=== PATIENT | male | born 1950 | race Caucasian/White ===

== ENCOUNTER 2019-05-23 19:19 | Emergency (ER) | payer MEDICARE, MEDICAID, SELFPAY ==
[2019-05-23 19:26] VITALS: BP 148/93; PULSE 140; RESP 20; TEMP 36.6; O2SAT 98
--- NOTE | 2019-05-23 19:33 | DI.RAD.S_ITS ---
PROCEDURE: XR CHEST 1V INDICATIONS: chest pain TECHNIQUE: One view of the chest was acquired. COMPARISON: [facility], CHEST 2 VIEW, 03/29/2012, 12:24. [facility], CHEST 1 VIEW, 10/14/2009, 13:12. FINDINGS: Surgical changes and devices: None. Lungs and pleura: Lungs are clear. No pleural effusions or pneumothorax. Mediastinum: Mediastinal contours appear normal. Heart size is normal. Bones and chest wall: No suspicious bony lesions. Overlying soft tissues appear unremarkable. IMPRESSION: Normal for age, source of current chest pain symptoms is not seen. Dictated by: Cosme Ponce M.D. on 05/23/2019 at 20:19 Approved by: Cosme Ponce M.D. on 05/23/2019 at 20:19
[2019-05-23 19:51] LABS: Add Manual Diff / Slide Review NO; Basophils Absolute Auto 0 /uL (0-100); Basophils Percent Auto 0.3 % (0-2); Eosinophils Absolute Auto 600 /uL (0-450); Eosinophils Percent Auto 7.7 % (2-4); Hematocrit 44.6 % (41-53); Hemoglobin 15.5 g/dL (13.5-17.5); Lymphocytes Absolute Auto 1900 /uL (1100-4500); Mean Corpuscular HGB Conc 34.8 % (30-36); Mean Corpuscular Hemoglobin 34.5 PG (26-34); Mean Corpuscular Volume 99.2 fL (80-100); Monocytes Absolute Auto 700 /uL (0-900); Monocytes Percent Auto 8.4 % (3-14); Neutrophils Absolute Auto 4600 /uL (1500-7000); Neutrophils Percent Auto 58.6 % (50-75); Platelet Count 99 X10^3/uL (150-400); Red Cell Distribution Width 13.2 % (11.6-14.8); White Blood Cell Count 7.8 X10^3/uL (4.5-11.0)
[2019-05-23 20:00] LABS: INR 1.1 (0.9-1.3); Prothrombin Time 13.2 SECONDS (10.1-12.7)
[2019-05-23 20:03] LABS: PTT Partial Thromboplastin Tim 33 SECONDS (26.4-36.2)
--- NOTE | 2019-05-23 20:04 | ED_ITS ---
HPI - Chest Pain General Chief Complaint: Chest Pain Stated Complaint: chest pain Time Seen by Provider: 05/23/19 19:47 Source: patient Mode of arrival: Ambulatory Limitations: no limitations History of Present Illness HPI narrative: Patient is a 69-year-old male here for evaluation of chest pain and palpitations. He states that he does have a history of atrial fibrillation. He is not currently on any medications for this. He states that he normally is able to control the heart rate with meditation. Is also reported that he is smoke some marijuana today which is not new for him. He also states that today he was served with some legal paperwork for other social issues that he has been he arrives the emergency department because he was scared about his heart rate and the chest pain that he is having. He states he is unsure if he is in atrial fibrillation all the time or whether not it comes and goes. He states that normally his heart rate is in the 80s. Related Data Previous Rx's Medication Instructions Recorded metoprolol succinate 25 mg PO DAILY #30 tab 05/23/19 Allergies Allergy/AdvReac Type Severity Reaction Status Date / Time No Known Drug Allergies Allergy Verified 05/23/19 21:12 Review of Systems Constitutional Constitutional: Denies fatigue, Denies fever(s) and Denies headache(s) ENT Ears, Nose, Mouth, and Throat: Denies headache(s) and Denies disequilibrium Cardiovascular Cardiovascular: Reports chest pain, Denies syncope, Reports rapid heart rate, Reports palpitations and Denies dyspnea Respiratory Respiratory: Denies cough and Denies dyspnea Gastrointestinal Gastrointestinal: Denies abdominal pain, Denies nausea and Denies vomiting Genitourinary Genitourinary: Denies dysuria Musculoskeletal Musculoskeletal: Denies myalgias and Denies arthralgias Integumentary/Breasts Skin/Breast: Denies lesions and Denies rash Neurologic Neurologic: Denies behavioral changes, Denies syncope, Denies headache(s) and Denies disequilibrium Psychiatric Psychiatric: Denies behavioral changes Endocrine Endocrine: Denies fatigue and Reports palpitations Hematologic/Lymphatic Hematologic/Lymphatic: Denies easy bleeding and Denies easy bruising Patient History Medical History (Updated 05/23/19 @ 23:27 by Damon Almanza DO) Atrial fibrillation (Acute) tobacco type: vaping Substance Use Type: marijuana Exam Initial Vital Signs Initial Vital Signs: Vital Signs Temperature 97.9 F 05/23/19 19:26 Pulse Rate 140 H 05/23/19 19:26 Respiratory Rate 20 05/23/19 19:26 Blood Pressure 148/93 H 05/23/19 19:26 Pulse Oximetry 98 05/23/19 19:26 Const General: cooperative, comfortable, well developed and well groomed Limitations: mental status not altered HENMT Head: normal to inspection and normocephalic Resp Effort & Inspection: normal respiratory effort Auscultation: clear to auscultation bilaterally Cardio Rate: tachycardic Rhythm: abnormal rhythm irregularly irregular Pulses: radial pulses present GI Inspection: non-distended Palpation: soft, No firm and No tender Skin Lesions: no lesions Rashes: no rashes Neuro General: alert, awake and oriented x3 Cognition: normal cognition Speech: speech normal Extrem General: normal to inspection and capillary refill normal Psych Appearance: grossly normal and well kempt Scores GCS [place] coma scale eye opening: Spontaneous [place] coma scale verbal response: Orientated [place] coma scale motor response: Obey commands [place] coma scale total score: 15 Course Orders Ordered: ED Orders 05/23/19 19:33 XR chest 1V Stat EKG-12 Lead Stat 05/23/19 19:40 Complete Blood Count AUTO DIFF Stat Comprehensive Metabolic Panel Stat Lipase Stat Partial Thromboplastin Time Stat Prothrombin Time INR Stat Troponin & CK Cardiac Panel Stat 05/23/19 21:35 Troponin I Stat Discontinued Medications Metoprolol Succinate (Toprol Xl) 25 mg PO NOW ONE Stop: 05/23/19 21:15 Last Admin: 05/23/19 21:38 Dose: 25 mg Documented by: JERMAINE Metoprolol Tartrate (Lopressor) 5 mg IV NOW ONE Stop: 05/23/19 20:05 Last Admin: 05/23/19 20:13 Dose: 5 mg Documented by: JERMAINE Vital Signs Vital signs: Vital Signs - 8 hr 05/23/19 19:26 05/23/19 20:25 05/23/19 21:03 Temperature 97.9 F Pulse Rate 140 H 120 H 112 H Respiratory Rate 20 25 H 16 Blood Pressure 148/93 H Blood Pressure [Left Arm] 129/104 H 111/98 H Pulse Oximetry 98 97 100 05/23/19 22:04 Temperature Pulse Rate 96 H Respiratory Rate 19 Blood Pressure Blood Pressure [Left Arm] 108/84 Pulse Oximetry 100 MDM - Chest Pain Lab Data Attestation: I reviewed the patient's lab results. Result diagrams: 05/23/19 19:40 05/23/19 19:40 Labs: Lab Results 05/23/19 05/23/19 05/23/19 Range/Units 19:40 19:40 19:40 WBC 7.8 (4.5-11.0) X10^3/uL RBC 4.50 (4.5-5.9) X10^6/uL Hgb 15.5 (13.5-17.5) g/dL Hct 44.6 (41-53) % MCV 99.2 (80-100) fL MCH 34.5 H (26-34) PG MCHC 34.8 (30-36) % RDW 13.2 (11.6-14.8) % Plt Count 99 L (150-400) X10^3/uL Neut % (Auto) 58.6 (50-75) % Lymph % (Auto) 25.0 (25-40) % [place] % (Auto) 8.4 (3-14) % Eos % (Auto) 7.7 H (2-4) % Baso % (Auto) 0.3 (0-2) % Neut # (Auto) 4600 (0610-0081) /uL Lymph # (Auto) 1900 (1947-8063) /uL [place] # (Auto) 700 (0-900) /uL Eos # (Auto) 600 H (0-450) /uL Baso # (Auto) 0 (0-100) /uL PT 13.2 H (10.1-12.7) SECONDS INR 1.1 (0.9-1.3) APTT 33 (26.4-36.2) SECONDS Sodium 140 (137-145) mmol/L Potassium 4.2 (3.4-5.1) mmol/L Chloride 104 (98-107) mmol/L Carbon Dioxide 27 (22-32) mmol/L BUN 13 (9-20) mg/dL Creatinine 0.90 (0.66-1.25) mg/dL Estimated GFR > 60.0 (>60) mL/min BUN/Creatinine Ratio 14.4 (6-22) Glucose 138 H (80-110) mg/dL Calcium 9.4 (8.4-10.2) mg/dL Total Bilirubin 0.7 (0.2-1.3) mg/dL AST 91 H (17-59) IU/L ALT 75 H (<50) IU/L Alkaline Phosphatase 141 H (38-126) U/L Total Creatine Kinase 186 H (55-170) U/L CK-MB (CK-2) 3.54 H (<2.37) ng/mL CK-MB (CK-2) Rel Index 1.9 (1.5-5.0) % Troponin I < 0.012 (0.01-0.034) ng/mL Total Protein 7.7 (6.3-8.2) g/dL Albumin 4.5 (3.5-5.0) g/dL Globulin 3.2 (1.7-4.1) g/dL Albumin/Globulin Ratio 1.4 (1.0-2.8) Lipase 100 (23-300) U/L 05/23/19 Range/Units 21:35 WBC (4.5-11.0) X10^3/uL RBC (4.5-5.9) X10^6/uL Hgb (13.5-17.5) g/dL Hct (41-53) % MCV (80-100) fL MCH (26-34) PG MCHC (30-36) % RDW (11.6-14.8) % Plt Count (150-400) X10^3/uL Neut % (Auto) (50-75) % Lymph % (Auto) (25-40) % [place] % (Auto) (3-14) % Eos % (Auto) (2-4) % Baso % (Auto) (0-2) % Neut # (Auto) (5372-9934) /uL Lymph # (Auto) (4587-8047) /uL [place] # (Auto) (0-900) /uL Eos # (Auto) (0-450) /uL Baso # (Auto) (0-100) /uL PT (10.1-12.7) SECONDS INR (0.9-1.3) APTT (26.4-36.2) SECONDS Sodium (137-145) mmol/L Potassium (3.4-5.1) mmol/L Chloride (98-107) mmol/L Carbon Dioxide (22-32) mmol/L BUN (9-20) mg/dL Creatinine (0.66-1.25) mg/dL Estimated GFR (>60) mL/min BUN/Creatinine Ratio (6-22) Glucose (80-110) mg/dL Calcium (8.4-10.2) mg/dL Total Bilirubin (0.2-1.3) mg/dL AST (17-59) IU/L ALT (<50) IU/L Alkaline Phosphatase (38-126) U/L Total Creatine Kinase (55-170) U/L CK-MB (CK-2) (<2.37) ng/mL CK-MB (CK-2) Rel Index (1.5-5.0) % Troponin I < 0.012 (0.01-0.034) ng/mL Total Protein (6.3-8.2) g/dL Albumin (3.5-5.0) g/dL Globulin (1.7-4.1) g/dL Albumin/Globulin Ratio (1.0-2.8) Lipase (23-300) U/L Imaging Data Chest x-ray: Radiologist's Impression: [address] [address] XRay Report Signed Patient: Brad Bal R#: [id number] : 2Acct:[id number] Age/Sex: 69 / MDate of Service: 05/23/19 Loc: ED Accession Number: [id number] Procedure: XR chest 1V Ordering Provider: Damon Almanza D.O. PROCEDURE: XR CHEST 1V INDICATIONS: chest pain TECHNIQUE: One view of the chest was acquired. COMPARISON: [facility], CHEST 2 VIEW, 03/29/2012, 12:24. [facility], CHEST 1 VIEW, 10/14/2009, 13:12. FINDINGS: Surgical changes and devices: None. Lungs and pleura: Lungs are clear. No pleural effusions or pneumothorax. Mediastinum: Mediastinal contours appear normal. Heart size is normal. Bones and chest wall: No suspicious bony lesions. Overlying soft tissues appear unremarkable. IMPRESSION: Normal for age, source of current chest pain symptoms is not seen. Dictated by: Cosme Ponce M.D. on 05/23/2019 at 20:19 Approved by: Cosme Ponce M.D. on 05/23/2019 at 20:19 ECG Data Attestation: I personally reviewed and interpreted this ECG as follows: Prior ECG tracings: not available for review Interpretation: Atrial fibrillation Ventricular rate of 148 Left axis deviation Normal QRS Normal QTC No ST T wave changes MDM Narrative Medical decision making narrative: Patient was in atrial fibrillation with RVR. Chest x-ray was unremarkable. Was having some chest discomfort that time. Upon arrival patient stated he did not want any medications. Apparently he has a history of hepatitis any was concerned that these medications may interact with that. I did inform him that he was in atrial fibrillation and his heart rate was fast and he was having chest discomfort and the concern that I have was that his chest pain was actually ischemia/angina. Patient stated that he initially only wanted to be ?observed ?for 2 hours before starting any medications in order to give him a chance to ?calm down ?I informed him that he was here in the emergency department and that given his presenting findings on his EKG in the fact he was having chest pain that waiting for 2 hours could potentially lead to worsening issues to include myocardial damage which could potentially be reversible. He then stated that he would like to be observed for ?1 hour ?I again informed him that if he was here in the emergency department and the symptoms he that he was having that we needed to intervene given the potential issues that he could be having. After this discussion the patient did agree to medications. He's given metoprolol which decreased his heart rate below 120. He was then given extended release metoprolol and his heart rate was consistently below 110 infrequently in the 90s. He was still in atrial fibrillation. He states that his chest discomfort had improved. His troponins were negative x2. I did send him home with a prescription for metoprolol unsure if he is going to start taking this medication. He does have a primary doctor. I did inform the patient he should talk to his primary doctor about the indications for anticoagulation. Patient would like to go home. He states that he feels better. He was given return precautions and follow-up instructions. He expressed understanding and agreement with plan. Discharge Plan Departure Patient Disposition: Home Clinical Impression: Atrial fibrillation Qualifiers: Atrial fibrillation type: unspecified Qualified Code(s): I48.91 - Unspecified atrial fibrillation Discharge Date/Time: 05/23/19 22:33 Instructions: DI for Atrial Fibrillation Activity Restrictions/Additional Instructions: It is important that you talk with your primary provider about further workup to include the potential stress test verses long-term medications and anticoagulation given your history of chest pain. There is obviously risks and benefits all of these medications. Return to the emergency department for any new or worsening symptoms. Your medications were transmitted to the [facility] pharmacy in [place]. Prescriptions: New metoprolol succinate 25 mg tablet extended release 24 hr 25 mg PO DAILY Qty: 30 RF: 0
[2019-05-23] MEDS: METOPROLOL TARTRATE 5 MG/5 ML INJ IV (20:13)
[2019-05-23 20:25] VITALS: BP 129/104; PULSE 120; RESP 25; O2SAT 97
[2019-05-23 20:27] LABS: Alanine Aminotransferase 75 IU/L (<50); Albumin 4.5 g/dL (3.5-5.0); Albumin Globulin Ratio 1.4 (1.0-2.8); Alkaline Phosphatase 141 U/L (38-126); Aspartate Aminotransferase 91 IU/L (17-59); BUN Creatinine Ratio 14.4 (6-22); Bilirubin Total 0.7 mg/dL (0.2-1.3); Blood Urea Nitrogen 13 mg/dL (9-20); Calcium 9.4 mg/dL (8.4-10.2); Carbon Dioxide 27 mmol/L (22-32); Chloride 104 mmol/L (98-107); Creatine Kinase 186 U/L (55-170); Estimated Glomerular Filt Rate > 60.0 mL/min (>60); Globulin 3.2 g/dL (1.7-4.1); Glucose 138 mg/dL (80-110); HEMOLYSIS < 15 (0-50); Lipase 100 U/L (23-300); Potassium 4.2 mmol/L (3.4-5.1); Sodium 140 mmol/L (137-145); Total Protein 7.7 g/dL (6.3-8.2); Troponin I < 0.012 ng/mL (0.01-0.034)
[2019-05-23 20:29] LABS: CKMB % Relative Index 1.9 % (1.5-5.0); Creatine Kinase MB 3.54 ng/mL (<2.37)
[2019-05-23 21:03] VITALS: BP 111/98; PULSE 112; RESP 16; O2SAT 100
[2019-05-23] MEDS: METOPROLOL ER 25 MG TABLET PO (21:38)
[2019-05-23 22:04] VITALS: BP 108/84; PULSE 96; RESP 19; O2SAT 100
[2019-05-23 22:04] LABS: Troponin I < 0.012 ng/mL (0.01-0.034)
== END 2019-05-23 22:33 | disposition home or self-care (01) ==
PROVIDERS: Emergency Provider Emergency Medicine
DX: I48.91 Unspecified atrial fibrillation (principal)
CPT/HCPCS: 36415; 71045; 80053; 82550; 82553; 83690; 84484; 85025; 85610; 85730; 93005; 96374; 99284; 99285

== ENCOUNTER 2019-06-01 20:30 | Observation (INO) | payer MEDICARE, MEDICAID, SELFPAY ==
[2019-06-01] VITALS (7 sets, daily range): BP systolic 111–140; BP diastolic 68–101; PULSE 64–121; RESP 14–18; TEMP 36.4; O2SAT 98–99
--- NOTE | 2019-06-01 20:40 | ED_ITS ---
HPI - Medical Clearance General Chief complaint: Medical Clearance Stated complaint: Fit for half-way Time Seen by Provider: 06/01/19 20:30 Source: patient Mode of arrival: Ambulatory Limitations: no limitations History of Present Illness HPI Narrative: 69M nonsmoker with history of AFib presents with PD for medical clearance for incarceration. There was no trauma or assault. Additionally patient denies any symptoms but upon further questioning he states that he feels quite anxious and is having palpitations. He was seen here few days ago for atrial fib with a rapid rate and there was some discussion about whether not he should be cardioverted but patient in the end refused and insisted upon going home. He is not anticoagulated and has not been taking his rate-controlling medications because he states he can normally do it with meditation alone. He does admit to palpitations but denies chest pain or any significant shortness of breath. It is unclear when his palpitations started MD complaint: medical clearance requested Alleged Intoxication: No Compliant with Home Medications: No Associated Symptoms: palpitations Treatments Prior to Arrival: none Related Information Previous Rx's Medication Instructions Recorded metoprolol succinate 25 mg PO DAILY #30 tab 05/23/19 Allergies Allergy/AdvReac Type Severity Reaction Status Date / Time No Known Drug Allergies Allergy Verified 05/23/19 21:12 Review of Systems Constitutional Constitutional: Denies chills, Denies fatigue, Denies fever(s), Denies frequent falls, Denies lethargy and Denies weakness Eyes Eyes: Denies change in vision, Denies eye discharge, Denies irritation and Denies loss of vision ENT Ears, Nose, Mouth, and Throat: Denies change in voice, Denies dizziness, Denies neck pain, Denies sore throat and Denies throat swelling Cardiovascular Cardiovascular: Denies chest pain, Denies irregular heart rhythm, Denies lightheadedness, Reports palpitations, Denies dyspnea, Denies dyspnea on exertion and Denies orthopnea Respiratory Respiratory: Denies cough, Denies dyspnea, Denies dyspnea on exertion and Denies wheezing Gastrointestinal Gastrointestinal: Denies abdominal pain, Denies change in bowel habits, Denies diarrhea, Denies nausea and Denies vomiting Genitourinary Genitourinary: Denies hematuria, Denies flank pain, Denies urinary incontinence and Denies urinary urgency Musculoskeletal Musculoskeletal: Denies back pain, Denies muscle weakness, Denies neck pain, Denies numbness and Denies tingling Integumentary/Breasts Skin/Breast: Denies pruritus, Denies erythema, Denies rash and Denies wounds Neurologic Neurologic: Denies behavioral changes, Denies confusion, Denies dizziness, Denies frequent falls, Denies loss of vision, Denies numbness, Denies tingling and Denies weakness Psychiatric Psychiatric: Denies anxiety, Denies behavioral changes, Denies confusion, Denies depression, Denies homicidal ideation and Denies suicidal ideation Endocrine Endocrine: Denies fatigue, Denies flushing and Reports palpitations Hematologic/Lymphatic Hematologic/Lymphatic: Denies easy bruising Allergic/Immunologic Allergic/Immunologic: Denies urticaria, Denies throat swelling and Denies wheezing Patient History Medical History Atrial fibrillation (Acute) Hepatitis C (Acute) Surgical History History of hand surgery (Acute) Family History Father Atrial fibrillation Chronic kidney disease Mother Parkinson's disease Sister Atrial fibrillation Sister Atrial fibrillation Cancer Social History household members: none Smoking Status: Never smoker alcohol intake: former tobacco type: vaping Substance Use Type: marijuana Exam Narrative Exam Narrative: GENERAL: [69] year old patient appears stated age. Well- nourished, well-developed patient, in mild distress. HEAD: Atraumatic. Normocephalic. EYES: Pupils equal round and reactive. Extraocular motions intact. No scleral icterus. No injection or drainage. ENT: Nose without bleeding, purulent drainage. Throat without erythema, tonsil lar hypertrophy or exudate. Airway patent. NECK: Trachea midline. Non tender CARDIOVASCULAR: tachycardic and irregular rhythm without murmurs, gallops, or rubs. RESPIRATORY: Clear to auscultation. Breath sounds equal bilaterally. No wheezes, rales, or rhonchi. GASTROINTESTINAL: Abdomen soft, non-tender, nondistended. EXTREMITIES: No edema or joint tenderness. BACK: Nontender without deformity or crepitance. No flank tenderness. NEURO: AOx3. SKIN: No rash or erythema of visible areas Initial Vital Signs Initial Vital Signs: Vital Signs Temperature 97.6 F 06/01/19 20:35 Pulse Rate 64 06/01/19 20:35 Respiratory Rate 18 06/01/19 20:35 Blood Pressure 140/87 06/01/19 20:35 Pulse Oximetry 98 06/01/19 20:35 MDM - Medical Clearance Lab Data Result diagrams: 06/01/19 21:30 06/01/19 21:30 Labs: Lab Results 06/01/19 06/01/19 06/01/19 Range/Units 21:30 21:30 22:45 WBC 6.3 (4.5-11.0) X10^3/uL RBC 4.32 L (4.5-5.9) X10^6/uL Hgb 14.8 (13.5-17.5) g/dL Hct 42.9 (41-53) % MCV 99.2 (80-100) fL MCH 34.4 H (26-34) PG MCHC 34.6 (30-36) % RDW 13.2 (11.6-14.8) % Plt Count 91 L (150-400) X10^3/uL Neut % (Auto) 56.8 (50-75) % Lymph % (Auto) 25.9 (25-40) % [place] % (Auto) 7.4 (3-14) % Eos % (Auto) 9.6 H (2-4) % Baso % (Auto) 0.3 (0-2) % Neut # (Auto) 3600 (7799-2855) /uL Lymph # (Auto) 1600 (3877-7336) /uL [place] # (Auto) 500 (0-900) /uL Eos # (Auto) 600 H (0-450) /uL Baso # (Auto) 0 (0-100) /uL Sodium 138 (137-145) mmol/L Potassium 4.0 (3.4-5.1) mmol/L Chloride 104 (98-107) mmol/L Carbon Dioxide 25 (22-32) mmol/L BUN 22 H (9-20) mg/dL Creatinine 0.80 (0.66-1.25) mg/dL Estimated GFR > 60.0 (>60) mL/min BUN/Creatinine Ratio 27.5 H (6-22) Glucose 123 H (80-110) mg/dL Calcium 8.9 (8.4-10.2) mg/dL Magnesium 2.0 (1.6-2.3) mg/dL Troponin I < 0.012 (0.01-0.034) ng/mL B-Natriuretic Peptide < 100 (<100) ECG Data Attestation: I personally reviewed and interpreted this ECG as follows: Interpretation: rapid afib in 140s, no ischemia. MDM Narrative Medical decision making narrative: 69 with symptomatic rapid afib, not candidate for cardioversion given lack of anticoagulation, duration unclear, but likely a few days and no chest pain or ischemic change on EKG. Initially his home meds given but he remained tachy in the 120s-130s for well over an hour and esmolol drip ordered. Patient clearly cannot be medically cleared and will need admission for stabilization of his condition. Discharge Plan Departure Patient Disposition: Admitted As Inpatient Clinical Impression: Atrial fibrillation Qualifiers: Atrial fibrillation type: paroxysmal Qualified Code(s): I48.0 - Paroxysmal atrial fibrillation Discharge Date/Time: 06/01/19 23:46 Admit Date/Time: 06/01/19 23:41 Admit Provider: Raji Aguiar
--- NOTE | 2019-06-01 21:02 | DI.RAD.S_ITS ---
PROCEDURE: XR CHEST 1V INDICATIONS: SOB TECHNIQUE: One view of the chest was acquired. COMPARISON: [facility], CR, XR CHEST 1V, 05/23/2019, 19:52. FINDINGS: Surgical changes and devices: None. Lungs and pleura: Lungs are clear. No pleural effusions or pneumothorax. Mediastinum: Mediastinal contours appear normal. Heart size is normal. Bones and chest wall: No suspicious bony lesions. Overlying soft tissues appear unremarkable. IMPRESSION: 1. No acute cardiopulmonary disease. Dictated by: Faisal Aparicio M.D. on 06/01/2019 at 21:23 Approved by: Faisal Aparicio M.D. on 06/01/2019 at 21:24
[2019-06-01 21:43] LABS: Add Manual Diff / Slide Review NO; Basophils Absolute Auto 0 /uL (0-100); Basophils Percent Auto 0.3 % (0-2); Eosinophils Absolute Auto 600 /uL (0-450); Eosinophils Percent Auto 9.6 % (2-4); Hematocrit 42.9 % (41-53); Hemoglobin 14.8 g/dL (13.5-17.5); Lymphocytes Absolute Auto 1600 /uL (1100-4500); Lymphocytes Percent Auto 25.9 % (25-40); Mean Corpuscular HGB Conc 34.6 % (30-36); Mean Corpuscular Hemoglobin 34.4 PG (26-34); Mean Corpuscular Volume 99.2 fL (80-100); Monocytes Absolute Auto 500 /uL (0-900); Monocytes Percent Auto 7.4 % (3-14); Neutrophils Absolute Auto 3600 /uL (1500-7000); Neutrophils Percent Auto 56.8 % (50-75); Platelet Count 91 X10^3/uL (150-400); Red Blood Cell Count 4.32 X10^6/uL (4.5-5.9); Red Cell Distribution Width 13.2 % (11.6-14.8); White Blood Cell Count 6.3 X10^3/uL (4.5-11.0)
[2019-06-01 21:53] LABS: BUN Creatinine Ratio 27.5 (6-22); Blood Urea Nitrogen 22 mg/dL (9-20); Calcium 8.9 mg/dL (8.4-10.2); Carbon Dioxide 25 mmol/L (22-32); Chloride 104 mmol/L (98-107); Estimated Glomerular Filt Rate > 60.0 mL/min (>60); Glucose 123 mg/dL (80-110); HEMOLYSIS 40 (0-50); Sodium 138 mmol/L (137-145)
[2019-06-01 21:57] LABS: B Type Natriuretic Peptide < 100 (<100)
[2019-06-01 23:12] LABS: Troponin I < 0.012 ng/mL (0.01-0.034)
--- NOTE | 2019-06-01 23:40 | DI.ECHO.S_ITS ---
[facility] +---------+ : : [address] : : : : [id number] : : : : Phone: [phone] Echocardiogram Report + + :Name: CHERISE OMALLEY Study Date: 06/02/2019 Height: 72 in : :[facility] Weight: 167 lb : : Gender: Male BSA: 2.0 m2 : :: 1950 Age: 69 yrs BP: 108/62 mmHg: :Reason For Study: Atrial fibrillation/ RVR : :Ordering Physician: Lola : :Hospitalist Performed By: Josette Page : :Referring: ROBIN ZABALA : + + Interpretation Summary Left ventricular systolic function is mild to moderately reduced. The ejection fraction is estimated to be 40-45%. There are no focal wall motion abnormalities. The right ventricular systolic pressure is estimated to be at least 19 mmHg based on an estimated right atrial pressure of 3 mm Hg. The left atrium is moderately dilated. Compared to prior echocardiogram, the LV systolic function is slightly less vigorous although visually is unchanged. Procedure: A two-dimensional transthoracic echocardiogram with color flow and Doppler was performed. The study quality was technically adequate. Comparison is made with the echocardiogram of 01/06/2017. The heart rate ranged between 74-102 bpm during the study. Left Ventricle: The left ventricle is normal in size and wall thickness. The ejection fraction is estimated to be 40-45%. Left ventricular systolic function is mild to moderately reduced. There are no focal wall motion abnormalities. Right Ventricle: The right ventricle is normal in size and function. Atria: The left atrium is moderately dilated. The right atrium is moderately dilated. There is no Doppler evidence for an interatrial shunt. Mitral Valve: The mitral valve leaflets appear mildly thickened, but open well. There is a flat closure plane of the the mitral valve leaflets. There is trace mitral regurgitation. Aortic Valve: The aortic valve is trileaflet. The aortic valve opens well. No aortic regurgitation is present. Tricuspid Valve: The tricuspid valve is normal in structure and function. There is trace tricuspid regurgitation. The right ventricular systolic pressure is estimated to be at least 19 mmHg based on an estimated right atrial pressure of 3 mm Hg. Pulmonic Valve: The pulmonic valve is not well visualized. There is trace pulmonic regurgitation. Great Vessels: The aortic root is normal size. The ascending aorta could not be visualized. The pulmonary artery is not well visualized, but is probably normal size. The IVC is of normal diameter and collapses greater than 50% with a sniff. This suggests a low right atrial pressure of 3 mm Hg. Pericardium/ Pleura There is no pericardial effusion. There is no pleural effusion. MMode/2D Measurements & Calculations LVIDd: 5.5 cm LVOT diam: 2.4 cm LVIDs: 4.5 cm Ao root diam: 3.9 cm FS: 17.4 % EPSS: 0.54 cm IVSd: 0.79 cm LVPWd: 0.87 cm LV stephens. diameter/BSA (cm/m^2): 2.8 LV sys. diameter/BSA (cm/m^2): 2.3 LA A2 area: 38.5 cm2 RA long axis: 6.0 cm LA A4 area: 29.0 cm2 RA area: 22.6 cm2 LA length (vol): 6.5 cm RA vol: 72.3 ml LA vol: 145.8 ml RA : 36.6 ml/m2 LA vol index: 73.9 ml/m2 IVC diam: 1.5 cm RVD1 (basal): 4.2 cm LVAd ap4: 27.9 cm2 RVD2 (mid): 3.5 cm LVAs ap4: 21.8 cm2 TAPSE: 1.8 cm LVLs ap4: 7.3 cm LVAd ap2: 27.5 cm2 LVLd ap2: 8.1 cm LVAs ap2: 18.9 cm2 LVLs ap2: 7.0 cm Doppler Measurements & Calculations Ao V2 max: 93.9 cm/sec LVOT Max Bradley: 54.2 cm/sec Ao V2 mean: 63.0 cm/sec LV V1 max P.2 mmHg Ao max P.6 mmHg LV V1 VTI: 9.5 cm Ao mean P.8 mmHg HAYDEE(I,D): 2.4 cm2 Ao V2 VTI: 18.6 cm HAYDEE(V,D): 2.7 cm2 sev ratio: 0.51 HAYDEE indexed to BSA (cm^2/m^2): 1.2 MV E max bradley: 60.3 cm/sec TR max bradley: 184.7 cm/sec Med Peak E' Bradley: 10.1 cm/sec TR max P.7 mmHg E/E' med: 6.0 PA V2 max: 63.0 cm/sec Lat Peak E' Bradley: 16.6 cm/sec PA V2 mean: 47.6 cm/sec E/E' lat: 3.6 PA mean P.97 mmHg E/e' average: 4.8 PA Accel Time: 0.18 sec MV P1/2t: 57.1 msec MV P1/2t max bradley: 61.0 cm/sec SV(LVOT): 44.9 ml MVA(P1/2t): 3.9 cm2 Electronically signed by: Fred Riley M.D. on Reading Physician:06/02/2019 04:26 PM
--- NOTE | 2019-06-01 23:41 | PC.NURSE ---
2309 Verbal order from Kelvin hospitalist- held Esmolol.
--- NOTE | 2019-06-01 23:45 | P.HP_ITS ---
History of Present Illness History of Present Illness Date Patient Seen: 06/01/19 Time Patient Seen: 23:00 Chief complaint: Fit for residential Narrative: Mr. Brad Bal is a 69-year-old male patient with history of paroxysmally atrial fibrillation, hepatitis C failing antiviral treatment who presents to the ER with years officers for medical clearance for residential. On eval uation the patient is found to be tachycardic in the 130s and reports palpitations. Patient was seen for similar episode on 05/23/2019 when he presented for what he describes as episodes of atrial fibrillation that was diagnosed in 2001. At that time he had chest pressure palpitations. He was refu sing admission and was discharged with a prescription for metoprolol succinate 25 mg daily. He reports having taken the medication but stopped because he did not like the way it made him feel. He is typically managed is episodic atrial fibrillation with meditation. Use not anticoagulated and has been told not to take aspirin related to his hepatitis and low platelet counts. The patient has had previous cardiac workup but no longer follows with cardiology. The patient presently denies chest pain but has pressure associated with palpitations. He has no shortness of breath cough or wheezing. Denies recent illness this had no fevers or chills, headaches or dizziness, nasal congestion or sore throat. He denies abdominal pain and has had no heartburn, nausea or vomiting. He denies changes in bowel or bladder habits. The patient is independent in his ADLs and uses no assistive devices. Arrival to the ER the patient is afebrile with temperature 97.6?, heart rate of 121, blood pressure 122/70, respirations 15 saturating 98% on room air. Twelve lead EKG is obtained finding atrial fibrillation with rapid ventricular response at a rate of 134 beats per minute. He has right bundle branch block without ectopy, ischemia or evidence of infarct. A chest x-ray is obtained which finds no acute cardiopulmonary processes. On laboratory analysis his white count of 6.3, hemoglobin of 14.8, hematocrit of 42.9 and platelets of 91. On coagulation studies from 05/23/2019 he has a PT of 13.2, INR 1.1 and a PTT of 33. His electrolytes are within normal range with a BUN of 22 and creatinine is 0.8. His nonfasting glucose is 123 has a magnesium level of 2.0. Liver functions obtained on 05/23/2019 revealed a total bili of 0.7, AST of 91, ALT is 75 and alkaline phosphatase of 141, his albumin is 4.5. His troponin today is negative at less than 0.012 and a BMP that is less than 100. In the ER the patient is given metoprolol succinate 25 mg but persistent heart rate elevated over 120 1 hour after administration. Esmolol drip is ordered and patient is to be admitted to medicine service for atrial fibrillation with RVR. Patient History Medical History (Updated 06/02/19 @ 00:10 by TARYN Smith) Atrial fibrillation (Acute) Hepatitis C (Acute) Surgical History (Updated 06/02/19 @ 00:10 by TARYN Smith) History of hand surgery (Acute) Family & Social History Family History (Updated 06/02/19 @ 00:12 by TARYN Smith) Father Atrial fibrillation Chronic kidney disease Mother Parkinson's disease Sister Atrial fibrillation Sister Atrial fibrillation Cancer Safety & Behavioral: Feels Safe in Current Yes Environment Tobacco & Substance use: Substance Use Type marijuana Comment: Patient presently lives in a single level single family home. He has been for over 10 years. He reports his father at 90 minutes 1 with history of chronic kidney disease and atrial fibrillation. His mother at 88 from parkinsonism. He has 2 sisters both atrial fibrillation and 1 with breast cancer. He has no children. Occupation: Retired, disability Smoking: The patient denies using tobacco products. 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 Substance use: Patient smokes marijuana daily. Advanced directives: In direct discussion with the patient he states his wish to be FULL CODE. He designates his sister Aleyda Mora ([phone]) or his shalom Garcia ([phone]) to be surrogate decision makers. Meds Home Medications and Allergies Home Medications Medication Instructions Recorded Confirmed Type metoprolol succinate 25 mg PO DAILY #30 tab 05/23/19 Rx Allergies Allergy/AdvReac Type Severity Reaction Status Date / Time No Known Drug Allergies Allergy Verified 05/23/19 21:12 Review of Systems Review of Systems Narrative: All systems reviewed and found unremarkable under discussed in the HPI above. Exam Vital Signs (past 8 hours): - 06/01/19 20:35 06/01/19 21:00 06/01/19 21:30 Temperature 97.6 F Pulse Rate 64 121 H 115 H Respiratory Rate 18 15 16 Blood Pressure 140/87 Blood Pressure [Right Arm] 122/70 127/86 Pulse Oximetry 98 98 99 06/01/19 22:00 06/01/19 22:30 06/01/19 23:00 Temperature Pulse Rate 112 H 110 H 97 H Respiratory Rate 15 17 17 Blood Pressure Blood Pressure [Right Arm] 117/78 111/68 111/68 Pulse Oximetry 99 98 98 Oxygen Delivery Method Room Air Narrative Exam Narrative: GENERAL APPEARANCE: well developed, well nourished, in no acute distress. HEENT: Normocephalic, wears glasses, PERRLA, conjunctiva clear, sclera anicteric, EOMs intact without nystagmus, no rhinorrhea, mucous membranes are moist and pink without lesions or exudate. NECK/THYROID: neck supple, positive JVD, no carotid bruit, no thyromegaly, trachea midline. LYMPH NODES: no cervical or supraclavicular lymphadenopathy. SKIN: [place], warm and dry, no visible lesions, rashes, ulcerations or petechiae. HEART: Irregularly irregular rhythm, S1-S2, no murmur, no rubs or gallops, brisk capillary refill, no edema LUNGS: clear to auscultation bilaterally, no coarseness crackles or wheezing, no cough present CHEST: Symmetrical movement, no accessory muscle use, good tidal volume. ABDOMEN: Soft, no distention, no abdominal tenderness, no organomegaly, no flank tenderness, active bowel tones. BACK: Normal curvature, nontender to palpation, no CVA tenderness on percussion EXTREMITIES: moves all extremities, strength is 5/5 and symmetrical, no deformities or joint effusions. NEUROLOGIC: AAO x4, no focal neurologic deficits, sensation intact to light touch, hearing grossly normal to speech. PSYCH: Soft spoken, cooperative, linear thought process, appropriate with stable behavior Objective Labs Result Diagrams: 06/01/19 21:30 06/01/19 21:30 Labs: Laboratory Results - last 24 hr 06/01/19 06/01/19 06/01/19 21:30 21:30 22:45 WBC 6.3 RBC 4.32 L Hgb 14.8 Hct 42.9 MCV 99.2 MCH 34.4 H MCHC 34.6 RDW 13.2 Plt Count 91 L Neut % (Auto) 56.8 Lymph % (Auto) 25.9 [place] % (Auto) 7.4 Eos % (Auto) 9.6 H Baso % (Auto) 0.3 Neut # (Auto) 3600 Lymph # (Auto) 1600 [place] # (Auto) 500 Eos # (Auto) 600 H Baso # (Auto) 0 Sodium 138 Potassium 4.0 Chloride 104 Carbon Dioxide 25 BUN 22 H Creatinine 0.80 Estimated GFR > 60.0 BUN/Creatinine Ratio 27.5 H Glucose 123 H Calcium 8.9 Magnesium 2.0 Troponin I < 0.012 B-Natriuretic Peptide < 100 Assessment & Plan Assessment & Plan narrative: This 69-year-old male who presents to the ER in custody of share of for medical clearance and is found to be tachycardic in AFib with RVR. Patient with prior history of atrial fibrillation seen in the ER on 05/23/2019 discharge home metoprolol. Patient with previous cardiac workup. Echocardiogram from 01/06/2017 finds EF of 55-60% normal LV and RV structure and function. Severe left atrial dilation and moderate right atrial dilation with trace mitral and pulmonic regurgitation. 1. Paroxysmal atrial fibrillation with rapid ventricular response, present on admission, active. -the patient reports episodes of atrial fibrillation initially diagnosed in 2001 following electrical shock contacting 170 volt electrical line. -reports previous cardiac workup without ongoing cardiology care -12 lead EKG confirms atrial fibrillation with RVR particular rate 134 with RBBB without evidence of ischemia or infarct. -potassium level is 4.0 and magnesium is 2.0. Troponin is negative at < 0.012, BNP is <100. -patient received metoprolol succinate 25 mg in the emergency department with no decrease in heart rate after 1 hour. Esmolol drip ordered but not started with heart rate controlled to low 100s without chest pain or shortness of breath. Continued palpitations. -patient reports being intolerant of metoprolol prescribed on prior ER visit, will consider change to Cardizem CD 100 20 mg daily. Will discuss with the patient following echocardiogram in the morning. -patient refuses anticoagulation with known low platelet count. -will monitor electrolytes with BMP and magnesium in the morning. 2. Hepatitis-C, chronic, stable -patient states he has undergone antiviral treatment that failed. -no current complaints of abdominal pain, nausea vomiting, bleeding or bruising. -LFTs from 05/23/2019 reveals a total bilirubin of 0.7, AST 91, ALT 75 and alkaline phosphatase of 141. His albumin is 4.5 is low platelets at 91. -will obtain a liver panel with chemistries in the morning. VTE prophylaxis: SCDs, enoxaparin Diet: Heart healthy IV fluid: Normal saline 75 cc/hour The patient is admitted to the hospital related to the severity is symptoms and risk for potential complications and adverse events. Patient is admitted as observation with expected length of stay to be less than 2 midnights.
[2019-06-02] VITALS (7 sets, daily range): BP systolic 106–114; BP diastolic 62–85; PULSE 88–103; RESP 14–20; TEMP 36.6–37.4; O2SAT 95–98; BMI 128.7; BMI 22.6
--- NOTE | 2019-06-02 00:12 | PC.NURSE ---
Addendum entered by Pramod Tobias R.N. 06/02/19 05:08: 0500: Awake, up to bathroom with sba. Vital signs stable. Original Note: Theater Technician Note: [id number]: Admitted to ICU room 104 as floor care with telemetry, from ER. Alert, oriented X3. Vital signs stable. IV in place in rt forearm. Friend at bedside briefly.
[2019-06-02] MEDS: SODIUM CHLORIDE 0.9% 1,000 ML 75 ML IV (01:11)
[2019-06-02 05:21] LABS: Alanine Aminotransferase 63 IU/L (<50); Albumin 3.7 g/dL (3.5-5.0); Albumin Globulin Ratio 1.2 (1.0-2.8); Alkaline Phosphatase 126 U/L (38-126); Aspartate Aminotransferase 64 IU/L (17-59); Bilirubin Total 0.5 mg/dL (0.2-1.3); Bilirubin Unconjugated 0.5 mg/dL (0.0-1.1); Globulin 3.1 g/dL (1.7-4.1); HEMOLYSIS < 15 (0-50); Total Protein 6.8 g/dL (6.3-8.2)
[2019-06-02 05:22] LABS: BUN Creatinine Ratio 22.5 (6-22); Blood Urea Nitrogen 18 mg/dL (9-20); Calcium 8.8 mg/dL (8.4-10.2); Carbon Dioxide 25 mmol/L (22-32); Chloride 107 mmol/L (98-107); Cholesterol 94 mg/dL (140-199); Estimated Glomerular Filt Rate > 60.0 mL/min (>60); Glucose 90 mg/dL (80-110); HDL Cholesterol 35 mg/dL (40-60); HEMOLYSIS < 15 (0-50); LDL Cholesterol Calculated 45 mg/dL (<100); Potassium 4.2 mmol/L (3.4-5.1); Sodium 139 mmol/L (137-145); Triglycerides 69 mg/dL (35-150)
[2019-06-02 05:52] LABS: Thyroid Stimulating Hormone 2.01 uIU/mL (0.47-4.68)
[2019-06-02] MEDS: METOPROLOL IR 25 MG TABLET 12.5 MG PO ×2 (08:28→09:01)
--- NOTE | 2019-06-02 14:41 | CM.IDA ---
Initial DCP Assessment Note: Pt is a 69 yo male, resident of [place]. Pt presents w/ [place] [employer] to be medically cleared before going [place] [facility] [facility]. PCP: Lili Payer: FARZANEH Pt discussed in morning multidisciplinary rounds, Dr Lyn indicated pt would have heart w/u and may be medically cleared for DC this afternoon. This INSTALLATION AND REPAIR TECHNICIAN placed call to [employer] P# [phone]; explained that pt would likely be DC this afternoon and dispatch requested another call when a DC order is in place and [employer] will make the determination at that time whether to come get pt. This INSTALLATION AND REPAIR TECHNICIAN requested that RN Coordinator Kiki call [employer] once pt's DC and she agreed. Meanwhile, met w/pt and his girl friend; one of my friends for 30 years at bedside, introduced role and permission given to proceed. This INSTALLATION AND REPAIR TECHNICIAN went over information on the HALL form re: observation status and reviewed the Medicare Part B coverage sheet. Pt signed the HALL and then asked why he no longer has M[employer] Part D Rx benefits? This INSTALLATION AND REPAIR TECHNICIAN unable to answer this question, pt states he lost the benefit after his Birthday in April (?) This INSTALLATION AND REPAIR TECHNICIAN provided information for [facility] counseling P# [phone] and strongly encouraged pt to apply for Medicaid to assist w/medical co pays and costs P# [phone] (to arrange appt w/[facility] admission counselor). Also available to pt is assist at [facility] P# [phone] where they offer walk in assist w/medicaid applications. Provided the pocket-sized version of the [facility] community resource guide also. Pt denies other needs or resources at this time. Pt and friend reviewed the events leading up to pt's arrest to include suspected drug users in pt's household, renters but not currently paying rent, that pt gave an eviction notice to and they called the police w/a harassment charge. Pt is aware that [employer] will be called upon his medical clearance from this hospital d/t his presentation of medical clearance for [facility] [facility]. Pt aware and states he has a court date now. Pt calm, cooperative and pleasant this afternoon. P: DC home is expected this afternoon, friend to transport, no DC order yet, RN Coordinator will alert [employer] upon pt's DC CAR Edgar
--- NOTE | 2019-06-02 16:43 | P.DS_ITS ---
History of Present Illness History of Present Illness Date Patient Seen: 06/02/19 Time Patient Seen: 16:44 Chief complaint: Fit for retirement Narrative: As per TARYN Smith: Mr. Brad Bal is a 69-year-old male patient with history of paroxysmally atrial fibrillation, hepatitis C failing antiviral treatment who presents to the ER with years officers for medical clearance for retirement. On evaluation the patient is found to be tachycardic in the 130s and reports palpitations. Patient was seen for similar episode on 05/23/2019 when he presented for what he describes as episodes of atrial fibrillation that was diagnosed in 2001. At that time he had chest pressure palpitations. He was refusing admission and was discharged with a prescription for metoprolol succinate 25 mg daily. He reports having taken the medication but stopped because he did not like the way it made him feel. He is typically managed is episodic atrial fibrillation with meditation. Use not anticoagulated and has been told not to take aspirin related to his hepatitis and low platelet counts. The patient has had previous cardiac workup but no longer follows with cardiology. The patient presently denies chest pain but has pressure associated with palpitations. He has no shortness of breath cough or wheezing. Denies recent illness this had no fevers or chills, headaches or dizziness, nasal congestion or sore throat. He denies abdominal pain and has had no heartburn, nausea or vomiting. He denies changes in bowel or bladder habits. The patient is independent in his ADLs and uses no assistive devices. Arrival to the ER the patient is afebrile with temperature 97.6?, heart rate of 121, blood pressure 122/70, respirations 15 saturating 98% on room air. Twelve lead EKG is obtained finding atrial fibrillation with rapid ventricular response at a rate of 134 beats per minute. He has right bundle branch block without ectopy, ischemia or evidence of infarct. A chest x-ray is obtained which finds no acute cardiopulmonary processes. On laboratory analysis his white count of 6.3, hemoglobin of 14.8, hematocrit of 42.9 and platelets of 91. On coagulation studies from 05/23/2019 he has a PT of 13.2, INR 1.1 and a PTT of 33. His electrolytes are within normal range with a BUN of 22 and creatinine is 0.8. His nonfasting glucose is 123 has a magnesium level of 2.0. Liver functions obtained on 05/23/2019 revealed a total bili of 0.7, AST of 91, ALT is 75 and alkaline phosphatase of 141, his albumin is 4.5. His troponin today is negative at less than 0.012 and a BMP that is less than 100. In the ER the patient is given metoprolol succinate 25 mg but persistent heart rate elevated over 120 1 hour after administration. Esmolol drip is ordered and patient is to be admitted to medicine service for atrial fibrillation with RVR. Discharge Providers Provider Date of admission: 06/01/19 23:41 Discharge Date: 06/02/19 Consults: 06/01/19 23:37 Consult to Dietitian, Adult Routine Comment: Reason For Exam: Paroxysmal atrial fibrillation, hepatitis-C Consult to Discharge Planning Routine Comment: Discharge provider: Raji Lyn DO Summary Hospital Course Discharge Diagnosis: 1. Paroxysmal atrial fibrillation with rapid ventricular response, present on admission, improved 2. Hepatitis-C, chronic, stable 3. Heart failure with reduced ejection fraction, chronicity unknown Hospital Course: This 69-year-old male who presents to the ER in custody of share of for medical clearance and is found to be tachycardic in AFib with RVR. Patient with prior history of atrial fibrillation seen in the ER on 05/23/2019 discharge home metoprolol. Patient with previous cardiac workup. Echocardiogram from 01/06/2017 finds EF of 55-60% normal LV and RV structure and function. Severe left atrial dilation and moderate right atrial dilation with trace mitral and pulmonic regurgitation. Patient was complaining of symptoms on 50 mg of metoprolol, however his rate is now controlled on 25 mg b.i.d. of metoprolol here. Echocardiogram showed a mild decreased in EF to 40-45% with no significant wall motion abnormalities, and his atria remain enlarged. Patient has symptomatic palpitations had resolved, and he was discharged 1. Paroxysmal atrial fibrillation with rapid ventricular response, present on admission, active. -the patient reports episodes of atrial fibrillation initially diagnosed in 2001 following electrical shock contacting 170 volt electrical line. -reported previous cardiac workup without ongoing cardiology care, he did not like his care at [facility]. He would prefer to find a new earth auger operator. I did recommend that he follow-up with a earth auger operator upon discharge given reduced ejection fraction. -12 lead EKG confirms atrial fibrillation with RVR particular rate 134 with RBBB without evidence of ischemia or infarct. -potassium level on admission 4.0 and magnesium is 2.0. Troponin was negative at < 0.012, BNP is <100. -patient received metoprolol succinate 25 mg in the emergency department with no decrease in heart rate after 1 hour. Esmolol drip ordered but not started with heart rate controlled to low 100s without chest pain or shortness of breath. Patient ultimately was continued on metoprolol 25 mg b.i.d. with improvement in his rate, but he remains in AFib. -troponins were negative x3 -patient reports being intolerant of metoprolol prescribed on prior ER visit. -patient refuses anticoagulation with known low platelet count and hepatitis-C, this was readdressed with him and he is adamant about not starting anticoagulation. 2. Hepatitis-C, chronic, stable -patient states he has undergone antiviral treatment that failed. -no current complaints of abdominal pain, nausea vomiting, bleeding or bruising. -LFTs from 05/23/2019 reveals a total bilirubin of 0.7, AST 91, ALT 75 and alkaline phosphatase of 141. His albumin is 4.5 is low platelets at 91. -will obtain a liver panel with chemistries in the morning. 3. Heart failure with reduced ejection fraction, chronicity unknown -previous echocardiogram as noted above showing a normal EF. Repeat this admission showed an EF of 40-45% without significant wall motion abnormalities. This may be in the setting of recent uncontrolled AFib and noncompliance with beta-karolina therapy. -he will need outpatient cardiology follow-up which I discussed with him, he will need a referral from his primary care provider -he has no evidence of volume overload -he should have a repeat echocardiogram as an outpatient in the next few months if he is compliant with his beta-karolina therapy. -patient with borderline low blood pressure, 106/79 on metoprolol. Unable to initiate SOPHIE-inhibitor therapy at this time. He will need outpatient follow-up as noted above. Dispo: Patient is stable for discharge at this time. Staff will contact police dispatch to let them know he is being released. Status at Discharge Cognitive/behavioral status at discharge: oriented Functional status at discharge: independent ambulation Overall status at discharge: patient is back to baseline Exam Vital Signs (past 8 hours): - 06/02/19 12:24 06/02/19 16:00 Temperature 98.5 F 99.3 F Pulse Rate 92 H 101 H Respiratory Rate 15 20 Blood Pressure 114/78 106/79 Pulse Oximetry 98 98 Oxygen Delivery Method Room Air Oxygen Flow Rate 0 Narrative Exam Narrative: GENERAL APPEARANCE: well developed, well nourished, in no acute distress. HEENT: Normocephalic, wears glasses, PERRLA, conjunctiva clear, sclera anicteric, EOMs intact without nystagmus, no rhinorrhea, mucous membranes are moist and pink without lesions or exudate. NECK/THYROID: neck supple, no JVD, no carotid bruit, no thyromegaly, trachea midline. LYMPH NODES: no cervical or supraclavicular lymphadenopathy. SKIN: [place], warm and dry, no visible lesions, rashes, ulcerations or petechiae. HEART: Irregularly irregular rhythm, S1-S2, no murmur, no rubs or gallops, brisk capillary refill, no edema LUNGS: clear to auscultation bilaterally, no coarseness crackles or wheezing, no cough present CHEST: Symmetrical movement, no accessory muscle use, good tidal volume. ABDOMEN: Soft, no distention, no abdominal tenderness, no organomegaly, no flank tenderness, active bowel tones. BACK: Normal curvature, nontender to palpation, no CVA tenderness on percussion EXTREMITIES: moves all extremities, strength is 5/5 and symmetrical, no deformities or joint effusions. NEUROLOGIC: AAO x4, no focal neurologic deficits, sensation intact to light touch, hearing grossly normal to speech. PSYCH: Soft spoken, cooperative, linear thought process, appropriate with stable behavior Objective Labs Result Diagrams: 06/01/19 21:30 06/02/19 04:50 Labs: Laboratory Results - last 24 hr 06/01/19 06/01/19 06/01/19 21:30 21:30 22:45 WBC 6.3 RBC 4.32 L Hgb 14.8 Hct 42.9 MCV 99.2 MCH 34.4 H MCHC 34.6 RDW 13.2 Plt Count 91 L Neut % (Auto) 56.8 Lymph % (Auto) 25.9 [place] % (Auto) 7.4 Eos % (Auto) 9.6 H Baso % (Auto) 0.3 Neut # (Auto) 3600 Lymph # (Auto) 1600 [place] # (Auto) 500 Eos # (Auto) 600 H Baso # (Auto) 0 Sodium 138 Potassium 4.0 Chloride 104 Carbon Dioxide 25 BUN 22 H Creatinine 0.80 Estimated GFR > 60.0 BUN/Creatinine Ratio 27.5 H Glucose 123 H Calcium 8.9 Magnesium 2.0 Total Bilirubin Conjugated Bilirubin Unconjugated Bilirubin AST ALT Alkaline Phosphatase Troponin I < 0.012 B-Natriuretic Peptide < 100 Total Protein Albumin Globulin Albumin/Globulin Ratio Triglycerides Cholesterol LDL Cholesterol, Calc HDL Cholesterol TSH Nasal Screen MRSA (PCR) 06/02/19 06/02/19 06/02/19 00:30 04:50 04:50 WBC RBC Hgb Hct MCV MCH MCHC RDW Plt Count Neut % (Auto) Lymph % (Auto) [place] % (Auto) Eos % (Auto) Baso % (Auto) Neut # (Auto) Lymph # (Auto) [place] # (Auto) Eos # (Auto) Baso # (Auto) Sodium 139 Potassium 4.2 Chloride 107 Carbon Dioxide 25 BUN 18 Creatinine 0.80 Estimated GFR > 60.0 BUN/Creatinine Ratio 22.5 H Glucose 90 Calcium 8.8 Magnesium 2.0 Total Bilirubin Conjugated Bilirubin Unconjugated Bilirubin AST ALT Alkaline Phosphatase Troponin I B-Natriuretic Peptide Total Protein Albumin Globulin Albumin/Globulin Ratio Triglycerides 69 Cholesterol 94 L LDL Cholesterol, Calc 45 HDL Cholesterol 35 L TSH 2.01 Nasal Screen MRSA (PCR) Negative for mrsa 06/02/19 04:50 WBC RBC Hgb Hct MCV MCH MCHC RDW Plt Count Neut % (Auto) Lymph % (Auto) [place] % (Auto) Eos % (Auto) Baso % (Auto) Neut # (Auto) Lymph # (Auto) [place] # (Auto) Eos # (Auto) Baso # (Auto) Sodium Potassium Chloride Carbon Dioxide BUN Creatinine Estimated GFR BUN/Creatinine Ratio Glucose Calcium Magnesium Total Bilirubin 0.5 Conjugated Bilirubin 0.0 Unconjugated Bilirubin 0.5 AST 64 H ALT 63 H Alkaline Phosphatase 126 Troponin I B-Natriuretic Peptide Total Protein 6.8 Albumin 3.7 Globulin 3.1 Albumin/Globulin Ratio 1.2 Triglycerides Cholesterol LDL Cholesterol, Calc HDL Cholesterol TSH Nasal Screen MRSA (PCR) Discharge Plan Discharge Plan Patient Disposition: Home Discharge comment: You were admitted to the hospital with an abnormal heart rhythm called atrial fibrillation. Your heart was being very fast new arrived. This improved when you took metoprolol. You should continue metoprolol as prescribed at 25 mg twice daily. You should also follow-up with a earth auger operator. Your echocardiogram showed that you had mild reduced function, this may be related to the arrhythmia but this needs to be rechecked. You should follow-up with your primary care provider in the next 1-2 weeks. Discharge orders & Medications Prescriptions: Continued metoprolol succinate 25 mg tablet extended release 24 hr 25 mg PO DAILY Qty: 30 RF: 0
== END 2019-06-02 17:33 | disposition home or self-care (01) ==
LOC: ED 23:07 → ICU 06-02 11:15
PROVIDERS: Admitting Provider Nurse Practitioner Adult Health; Emergency Provider Emergency Medicine; Visit Provider Nurse Practitioner Adult Health
DX: I48.0 Paroxysmal atrial fibrillation (principal); R00.2 Palpitations; B18.2 Chronic viral hepatitis C; I50.9 Heart failure, unspecified
CPT/HCPCS: 36415; 71045; 80048; 80061; 80076; 83735; 83880; 84443; 84484; 85025; 87797; 93005; 93306; 96360; 96361; 99284; 99285; G0378; J1650

== ENCOUNTER → 2022-01-22 17:25 | Outpatient (CLI) | payer MEDICARE, SELFPAY ==
[2019-06-02 08:00] VITALS: BMI 22.6
--- NOTE | 2022-01-22 17:28 | DI.RAD.S_ITS ---
PROCEDURE: XR ANKLE RT MIN 3V INDICATIONS: Right ankle strain TECHNIQUE: 3 views of the ankle were acquired. COMPARISON: None. FINDINGS: Bones: There is a nondisplaced fracture involving the distal tip of the right fibula with moderate overlying soft tissue edema. Ankle mortise is normally aligned. No suspicious bony lesions. Retrocalcaneal enthesophyte. Soft tissues: Small anterior tibiotalar joint effusion. Achilles tendon appears normal. IMPRESSION: Small nondisplaced fracture involving the distal tip of the right fibula with moderate overlying soft tissue edema. Ankle mortise is preserved. Small tibiotalar joint effusion. Retrocalcaneal enthesophyte. Dictated by: Alec Loving M.D. on 01/22/2022 at 18:06 Approved by: Alec Loving M.D. on 01/22/2022 at 18:07
== END ==
PROVIDERS: Referring Provider Nurse Practitioner Family; Visit Provider Nurse Practitioner Family
DX: S96.911A Strain of unspecified muscle and tendon at ankle and foot level, right foot, initial encounter (principal); S82.831A Other fracture of upper and lower end of right fibula, initial encounter for closed fracture; M25.471 Effusion, right ankle; M77.31 Calcaneal spur, right foot
CPT/HCPCS: 73610

== ENCOUNTER → 2023-12-28 08:31 | Outpatient (CLI) | payer MEDICARE, SELFPAY ==
[2019-06-02 08:00] VITALS: BMI 22.6
== END ==
PROVIDERS: Referring Provider Nurse Practitioner Family; Visit Provider Nurse Practitioner Family
DX: R21 Rash and other nonspecific skin eruption (principal)
CPT/HCPCS: 87070; 87075; 87205

== ENCOUNTER 2024-04-02 14:58 | Emergency (ER) | payer MEDICARE, SELFPAY ==
[2019-06-02 08:00] VITALS: BMI 22.6
[2024-04-02] VITALS (11 sets, daily range): BP systolic 94–119; BP diastolic 63–82; PULSE 87–128; RESP 16–26; TEMP 36.7; O2SAT 95–99; BMI 22.8
--- NOTE | 2024-04-02 15:42 | EKG_ITS ---
[address] [address] [place] [address] Test Date: 2024-04-02 Pat Name: Brad Bal Department: [facility] Room: Gender: Male Hay Chopper: SHANNAN : 1950 Requested By: Order Number: [id number] Reading MD: Raji Lyn Measurements Intervals Oscar Rate: 122 P: NE: QRS: -47 QRSD: 98 T: 1 QT: 344 QTc: 490 Interpretive Statements Atrial fibrillation with rapid ventricular response Incomplete right bundle branch block Left anterior fascicular block Electronically Signed On 04-04-2024 19:03:12 PST by Raji Lyn
[2024-04-02 16:05] LABS: Add Manual Diff / Slide Review NO; Basophils Absolute Auto 0 /uL (0-100); Basophils Percent Auto 0.3 % (0-2); Eosinophils Absolute Auto 300 /uL (0-450); Eosinophils Percent Auto 4.1 % (2-4); Hematocrit 44.1 % (41-53); Hemoglobin 15.1 g/dL (13.5-17.5); Lymphocytes Absolute Auto 600 /uL (1100-4500); Lymphocytes Percent Auto 8.9 % (25-40); Mean Corpuscular HGB Conc 34.2 % (30-36); Mean Corpuscular Hemoglobin 32.8 PG (26-34); Mean Corpuscular Volume 95.9 fL (80-100); Monocytes Absolute Auto 800 /uL (0-900); Monocytes Percent Auto 11.8 % (3-14); Neutrophils Absolute Auto 5300 /uL (1500-7000); Neutrophils Percent Auto 74.9 % (50-75); Platelet Count 156 X10^3/uL (150-400); Red Cell Distribution Width 12.7 % (11.6-14.8)
[2024-04-02 16:10] LABS: Alanine Aminotransferase 23 IU/L (<50); Albumin 4.1 g/dL (3.5-5.0); Albumin Globulin Ratio 1.1 (1.0-2.8); Alkaline Phosphatase 144 U/L (38-126); Aspartate Aminotransferase 43 IU/L (17-59); BUN Creatinine Ratio 19.2 (6-22); Blood Urea Nitrogen 23 mg/dL (9-20); Calcium 9.2 mg/dL (8.4-10.2); Carbon Dioxide 24 mmol/L (22-32); Chloride 104 mmol/L (98-107); Estimated Glomerular Filt Rate > 60 mL/min (>60); Globulin 3.7 g/dL (1.7-4.1); Glucose 123 mg/dL (80-110); HEMOLYSIS 82 (0-50); Lipase 52 U/L (23-300); Potassium 4.6 mmol/L (3.4-5.1); Sodium 136 mmol/L (137-145); Total Protein 7.8 g/dL (6.3-8.2)
--- NOTE | 2024-04-02 16:58 | ED_ITS ---
HPI - Abdominal Pain <Zoey Mendoza DO - Last Filed: 04/03/24 08:38> General Chief Complaint: Abdominal Pain Stated Complaint: r/u hernia, sent by [facility] Time Seen by Provider: 04/02/24 16:26 Source: patient Mode of arrival: Ambulatory Limitations: no limitations History of Present Illness HPI narrative: [age] old male history of atrial fibrillation no anticoagulation, known bladder CA with urostomy has just completed radiation who presents with complaint of a lump in the left upper abdomen for the past week. Patient states painful it seems to get worse with movement. He was able to push it back inside earlier today and states he does not see in that area anymore. It is still little bit tender but states pain has improved. It has been quite painful earlier in the week he was having nausea or vomiting with it. He denies fevers. Denies chest pain or shortness of breath. States he has been having bowel movements been slightly constipated but stooling. States his urine has been a little bit odoriferous. Patient states he does have a known history of AFib he does not feel that he is fast at this time. He does not take any anticoagulation. Was on Cardizem at 1 point and digoxin. Does not take these any longer states he does not tolerate metoprolol he gets hypotensive. Follows with Brandon Brady for his oncology care. Related Data Previous Rx's Medication Instructions Recorded ondansetron 4 mg disintegrating 4 mg PO Q8H PRN nausea and 04/02/24 tablet vomiting #10 tabs Allergies Allergy/AdvReac Type Severity Reaction Status Date / Time No Known Drug Allergies Allergy Verified 04/02/24 14:56 Review of Systems <Zoey Mendoza DO - Last Filed: 04/03/24 08:38> Review of Systems ROS Unobtainable: All systems reviewed & are unremarkable except as noted in HPI and below Patient History <Zoey Mendoza DO - Last Filed: 04/03/24 08:38> Medical History (Updated 04/02/24 @ 19:12 by Jasmyn Infante DO) Hepatitis C Atrial fibrillation Surgical History History of hand surgery Family History Father Atrial fibrillation Chronic kidney disease Mother Parkinson's disease Sister Atrial fibrillation Sister Atrial fibrillation Cancer Social History household members: none Smoking Status: Never smoker alcohol intake: former Smoking Status: Never smoker tobacco type: vaping Substance Use Type: marijuana Exam <Zoey Mendoza DO - Last Filed: 04/03/24 08:38> Narrative Exam Narrative: GENERAL: Alert and oriented x three, male in mild distress HEENT: Head normocephalic, atraumatic, EOMI, pupils reactive, face symmetric, moist mucous membranes NECK: Supple, full range of motion CARDIOVASCULAR: Irregularly irregular rate and rhythm without murmurs, rubs or gallops. RESPIRATORY: Breath sounds equal bilaterally, no wheezes rales or rhonchi. ABDOMEN: Soft, nontender, small lump in the left upper abdomen less than a cm in size not easily reducible but in the area patient states was uncomfortable earlier. This is just lateral and left to healed incision in his midline. He has a right-sided urostomy with yellow urine draining. Normoactive bowel sounds all 4 quadrants. No guarding or rebound, rigidity, no mass : No CVA tenderness EXTREMITIES: Normal range of motion, no clubbing or edema. Neurovascularly intact NEUROLOGICAL: Cranial nerves II through XII grossly intact. Moving all extremities SKIN: Warm, dry, no petechiae, no rashes or lesions. Initial Vital Signs Initial Vital Signs: Vital Signs Temperature 98.0 F 04/02/24 15:03 Pulse Rate 87 04/02/24 15:03 Respiratory Rate 16 04/02/24 15:03 Blood Pressure 112/71 04/02/24 15:03 Pulse Oximetry 99 04/02/24 15:03 Oxygen Delivery Method Room Air 04/02/24 15:03 <Jasmyn Infante DO - Last Filed: 04/03/24 00:53> Initial Vital Signs Initial Vital Signs: Vital Signs Temperature 98.0 F 04/02/24 15:03 Pulse Rate 87 04/02/24 15:03 Respiratory Rate 16 04/02/24 15:03 Blood Pressure 112/71 04/02/24 15:03 Pulse Oximetry 99 04/02/24 15:03 Oxygen Delivery Method Room Air 04/02/24 15:03 Course <Zoey Mendoza DO - Last Filed: 04/03/24 08:38> Orders Ordered: Discontinued Medications Diltiazem HCl (Diltiazem Sr 60 Mg) 60 mg PO NOW ONE Stop: 04/02/24 17:06 Last Admin: 04/02/24 17:34 Dose: 60 mg Documented By: NITHIN Sodium Chloride (Normal Saline 0.9%) 500 mls @ 1,000 mls/hr IV BOLUS ONE Stop: 04/02/24 17:34 Last Infusion: 04/02/24 18:42 Dose: Infused Documented By: Admin: 04/02/24 17:34 Dose: 1,000 mls/hr Documented By: NITHIN Lidocaine HCl (Lidocaine 2% (Glydo) 6 Ml Gel) 6 ml TOP NOW ONE Stop: 04/02/24 19:23 Ondansetron HCl (Ondansetron 4 Mg/2 Ml Inj) 4 mg IV NOW PRN PRN Reason: Nausea And Vomiting Ondansetron HCl (Ondansetron 4 Mg Odt) 4 mg PO NOW PRN PRN Reason: Nausea And Vomiting Ondansetron HCl (Ondansetron 4 Mg Odt Prepack) 1 bottle MISC DIRECTED ONE Stop: 04/02/24 19:14 Last Admin: 04/02/24 19:19 Dose: 1 bottle Documented By: NITHIN Vital Signs Vital signs: Vital Signs - 8 hr 04/02/24 17:00 04/02/24 17:00 04/02/24 17:37 Pulse Rate 123 H 119 H Respiratory Rate 26 H Blood Pressure 102/70 Pulse Oximetry 97 04/02/24 17:45 04/02/24 17:45 04/02/24 18:00 Pulse Rate 117 H 117 H Respiratory Rate 19 22 Blood Pressure 112/82 Pulse Oximetry 97 95 04/02/24 18:00 04/02/24 18:30 04/02/24 18:42 Pulse Rate 112 H Respiratory Rate 22 Blood Pressure 103/69 111/74 Pulse Oximetry 95 04/02/24 18:42 04/02/24 19:00 04/02/24 19:00 Pulse Rate 117 H 116 H Respiratory Rate 22 22 Blood Pressure 107/79 Pulse Oximetry 96 96 <Jasmyn Infante DO - Last Filed: 04/03/24 00:53> Orders Ordered: Discontinued Medications Diltiazem HCl (Diltiazem Sr 60 Mg) 60 mg PO NOW ONE Stop: 04/02/24 17:06 Last Admin: 04/02/24 17:34 Dose: 60 mg Documented By: NITHIN Sodium Chloride (Normal Saline 0.9%) 500 mls @ 1,000 mls/hr IV BOLUS ONE Stop: 04/02/24 17:34 Last Infusion: 04/02/24 18:42 Dose: Infused Documented By: Admin: 04/02/24 17:34 Dose: 1,000 mls/hr Documented By: NITHIN Lidocaine HCl (Lidocaine 2% (Glydo) 6 Ml Gel) 6 ml TOP NOW ONE Stop: 04/02/24 19:23 Ondansetron HCl (Ondansetron 4 Mg/2 Ml Inj) 4 mg IV NOW PRN PRN Reason: Nausea And Vomiting Ondansetron HCl (Ondansetron 4 Mg Odt) 4 mg PO NOW PRN PRN Reason: Nausea And Vomiting Ondansetron HCl (Ondansetron 4 Mg Odt Prepack) 1 bottle MISC DIRECTED ONE Stop: 04/02/24 19:14 Last Admin: 04/02/24 19:19 Dose: 1 bottle Documented By: NITHIN Vital Signs Vital signs: Vital Signs - 8 hr 04/02/24 17:00 04/02/24 17:00 04/02/24 17:37 Pulse Rate 123 H 119 H Respiratory Rate 26 H Blood Pressure 102/70 Pulse Oximetry 97 04/02/24 17:45 04/02/24 17:45 04/02/24 18:00 Pulse Rate 117 H 117 H Respiratory Rate 19 22 Blood Pressure 112/82 Pulse Oximetry 97 95 04/02/24 18:00 04/02/24 18:30 04/02/24 18:42 Pulse Rate 112 H Respiratory Rate 22 Blood Pressure 103/69 111/74 Pulse Oximetry 95 04/02/24 18:42 04/02/24 19:00 04/02/24 19:00 Pulse Rate 117 H 116 H Respiratory Rate 22 22 Blood Pressure 107/79 Pulse Oximetry 96 96 MDM - Abdominal Pain <Zoey Mendoza DO - Last Filed: 04/03/24 08:38> Lab Data 04/02/24 15:40 04/02/24 15:40 Labs: Lab Results 04/02/24 04/02/24 Range/Units 15:40 17:41 WBC 7.0 (4.5-11.0) X10^3/uL RBC 4.60 (4.5-5.9) X10^6/uL Hgb 15.1 (13.5-17.5) g/dL Hct 44.1 (41-53) % MCV 95.9 (80-100) fL MCH 32.8 (26-34) PG MCHC 34.2 (30-36) % RDW 12.7 (11.6-14.8) % Plt Count 156 (150-400) X10^3/uL Neut % (Auto) 74.9 (50-75) % Lymph % (Auto) 8.9 L (25-40) % [place] % (Auto) 11.8 (3-14) % Eos % (Auto) 4.1 H (2-4) % Baso % (Auto) 0.3 (0-2) % Neut # (Auto) 5300 (1686-8215) /uL Lymph # (Auto) 600 L (0339-6314) /uL [place] # (Auto) 800 (0-900) /uL Eos # (Auto) 300 (0-450) /uL Baso # (Auto) 0 (0-100) /uL Sodium 136 L (137-145) mmol/L Potassium 4.6 (3.4-5.1) mmol/L Chloride 104 (98-107) mmol/L Carbon Dioxide 24 (22-32) mmol/L BUN 23 H (9-20) mg/dL Creatinine 1.20 (0.66-1.25) mg/dL Estimated GFR > 60 (>60) mL/min BUN/Creatinine Ratio 19.2 (6-22) Glucose 123 H (80-110) mg/dL Calcium 9.2 (8.4-10.2) mg/dL Total Bilirubin 1.0 (0.2-1.3) mg/dL AST 43 (17-59) IU/L ALT 23 (<50) IU/L Alkaline Phosphatase 144 H (38-126) U/L Total Protein 7.8 (6.3-8.2) g/dL Albumin 4.1 (3.5-5.0) g/dL Globulin 3.7 (1.7-4.1) g/dL Albumin/Globulin Ratio 1.1 (1.0-2.8) Lipase 52 (23-300) U/L Urine Color Dark yellow Urine Appearance Sl cloudy Urine pH 7.0 (4.5-8.0) Ur Specific [place] 1.015 (1.000-1.035) Urine Protein Trace H (Negative) Urine Glucose (UA) Negative (Negative) g/dL Urine Ketones Negative (NEGATIVE) Urine Occult Blood Trace-intact (Negative) Urine Nitrate Positive H (Negative) Urine Bilirubin Negative (NEGATIVE) Urine Urobilinogen 0.2 (0.2) E.U./dL Ur Leukocyte Esterase 2+ H (NEGATIVE) Urine RBC 1-5/hpf (0-5/HPF) Urine WBC 5-10/hpf H (0-5/HPF) Ur Squamous Epith Cells 0-1 /hpf (0-5/HPF) Urine Bacteria Many (>30) H (None) Hyaline Casts 1-5/lpf (None) Urine Mucus 2+ H (Negative) Ur Culture Indicated? Specimen cultured Vol Urine Centrifuged 10ml (spun) ECG Data Attestation: I personally reviewed and interpreted this ECG as follows: Prior ECG tracings: available for review Interpretation: AFib with RVR rate of 122 TX 98 QRS of 490. Patient has prior from 06/01/2019 which appears with nonspecific change. [facility] Narrative Medical decision making narrative: 73-year-old history of bladder cancer, had urostomy and radiation is scheduled to start chemotherapy next week. Patient presents with concern for left upper abdominal hernia. Unable to palpate a small nodule which could be a small amount of fat trapped but is only mildly tender currently he describes as being much larger but sounds like he was possibly able to reduce hernia earlier. Patient was also appropriate vitals initially but heart rate increased found to be in AFib RVR has a known history is not anticoagulated not currently on any medication for rate control. He is otherwise asymptomatic. Labs show normal CBC, normal white count hemoglobin and platelets. INR is normal, sodium 136 potassium is 4.6 once 23 creatinine is 1.20, glucose is 123. Alk-phos is 144 but otherwise normal. EKG shows AFib RVR nonspecific change. CT abdomen pelvis UA is nitrate positive, trace protein 2+ leukocyte esterase. Patient signed out to Dr. Infante while awaiting CT abdomen and pelvis. Patient's urine is nitrate positive but has urostomy maybe prudent to hold off until culture results as he could easily be colonized. Patient signed out to me by Dr. Mendoza I have seen evaluated patient myself. He overall appears well and nontoxic. He is minimally tender in his left upper quadrant. CT does confirm upper abdominal fat ventral hernia with a wide neck. There is no evidence of incarceration at this time. He reports he does get nauseous and is currently out of his anti nausea medication but is not actively nauseous or vomiting. Abdomen is soft no distention. Urine is suspicious for UTI however he has no evidence of sepsis. We discussed holding off antibiotics until culture count came back possibly colonized. He is supposed to start chemotherapy in 2 days I recommended he call and ask where his culture prior to chemotherapy. <Jasmyn Infante, DO - Last Filed: 04/03/24 00:53> Lab Data Labs: Lab Results 04/02/24 04/02/24 Range/Units 15:40 17:41 WBC 7.0 (4.5-11.0) X10^3/uL RBC 4.60 (4.5-5.9) X10^6/uL Hgb 15.1 (13.5-17.5) g/dL Hct 44.1 (41-53) % MCV 95.9 (80-100) fL MCH 32.8 (26-34) PG MCHC 34.2 (30-36) % RDW 12.7 (11.6-14.8) % Plt Count 156 (150-400) X10^3/uL Neut % (Auto) 74.9 (50-75) % Lymph % (Auto) 8.9 L (25-40) % [place]odd[place] % (Auto) 11.8 (3-14) % Eos % (Auto) 4.1 H (2-4) % Baso % (Auto) 0.3 (0-2) % Neut # (Auto) 5300 (7898-0527) /uL Lymph # (Auto) 600 L (1424-1131) /uL [place] # (Auto) 800 (0-900) /uL Eos # (Auto) 300 (0-450) /uL Baso # (Auto) 0 (0-100) /uL Sodium 136 L (137-145) mmol/L Potassium 4.6 (3.4-5.1) mmol/L Chloride 104 (98-107) mmol/L Carbon Dioxide 24 (22-32) mmol/L BUN 23 H (9-20) mg/dL Creatinine 1.20 (0.66-1.25) mg/dL Estimated GFR > 60 (>60) mL/min BUN/Creatinine Ratio 19.2 (6-22) Glucose 123 H (80-110) mg/dL Calcium 9.2 (8.4-10.2) mg/dL Total Bilirubin 1.0 (0.2-1.3) mg/dL AST 43 (17-59) IU/L ALT 23 (<50) IU/L Alkaline Phosphatase 144 H (38-126) U/L Total Protein 7.8 (6.3-8.2) g/dL Albumin 4.1 (3.5-5.0) g/dL Globulin 3.7 (1.7-4.1) g/dL Albumin/Globulin Ratio 1.1 (1.0-2.8) Lipase 52 (23-300) U/L Urine Color Dark yellow Urine Appearance Sl cloudy Urine pH 7.0 (4.5-8.0) Ur Specific [place] 1.015 (1.000-1.035) Urine Protein Trace H (Negative) Urine Glucose (UA) Negative (Negative) g/dL Urine Ketones Negative (NEGATIVE) Urine Occult Blood Trace-intact (Negative) Urine Nitrate Positive H (Negative) Urine Bilirubin Negative (NEGATIVE) Urine Urobilinogen 0.2 (0.2) E.U./dL Ur Leukocyte Esterase 2+ H (NEGATIVE) Urine RBC 1-5/hpf (0-5/HPF) Urine WBC 5-10/hpf H (0-5/HPF) Ur Squamous Epith Cells 0-1 /hpf (0-5/HPF) Urine Bacteria Many (>30) H (None) Hyaline Casts 1-5/lpf (None) Urine Mucus 2+ H (Negative) Ur Culture Indicated? Specimen cultured Vol Urine Centrifuged 10ml (spun) Imaging Data CT scan - abdomen/pelvis: Radiologist's Impression: PROCEDURE: CT ABDOMEN PELVIS W CON INDICATIONS: LUQ lump, better now but painful, n/v before ?hernia TECHNIQUE: After the administration of intravenous contrast, axial sections acquired from the lung bases to the pubic symphysis. Coronal and sagittal reformats were performed. For radiation dose reduction, the following was used: automated exposure control, adjustment of mA and/or kV according to patient size. COMPARISON: [facility], CT, CT ABDOMEN HEPATIC/ADRENAL PROTOCOL, 06/03/2021, 14:11. FINDINGS: Image quality: Diagnostic. Lower Chest: 3 mm subpleural nodule in the right middle lobe (3/4). ABDOMEN: Liver: Nodular liver surface. Hyperenhancing lesions are seen in segment 4A and 7 (2/32) a few hypoattenuating lesions are seen in an segments 2 and 3 (such as on and ). The majority of these lesions are new or more prominent when compared to the CT from 06/02/2021. Gallbladder: Mild dependent sludge. No pericholecystic inflammatory changes. Biliary ducts: No biliary dilation. Pancreas: No ductal dilation. Spleen: Size is upper limits of normal. Stable low-density lesion in the spleen, which is likely benign. Adrenal Glands: 1.4 x 1.1 cm left adrenal nodule versus retroperitoneal lymph node (2/39), which is new when compared to the prior exam. Kidneys and Ureters: Postsurgical changes from cystectomy and ileal conduit. The right ureter is mildly diffusely dilated without significant hydronephrosis. Left ureter appears normal. No solid mass. No complex renal cystic lesion which requires follow up. Stomach and Bowel: Surgical anastomosis is seen in the right lower quadrant, which appears patent. Peritoneum: No abnormal intraperitoneal fluid. No free air. Ventral Wall: Upper abdominal fat containing midline ventral hernia is seen measuring approximately the 4.8 x 1.7 x 3.7 cm with neck measuring approximately 3.1 x 3.6 cm. Abdominal Nodes: Retroperitoneal lymph nodes are increased in size and number, for reference, a 1.1 cm left periaortic lymph node (2/61). Increased number of small lymph nodes are seen in the small bowel mesentery, nonspecific. Vessels: Aorta and inferior vena cava are normal in size. PELVIS: Pelvic Organs: Postsurgical changes are seen from prostatectomy and cystectomy with right abdominal urostomy. Small right hydrocele is partially imaged. Bladder: No bladder wall thickening, accounting for underdistention. Pelvic Nodes: No enlarged lymph nodes. Miscellaneous: No inguinal hernias are seen. Bones: No aggressive osseous abnormality. IMPRESSION: 1. Upper abdominal fat containing ventral hernia is seen with wide neck. 2. Cirrhotic morphology of the liver. Multiple indeterminate hyperenhancing and hypoenhancing lesions are seen. Recommend nonemergent liver protocol CT or MRI for further evaluation. 3. Multiple enlarged retroperitoneal lymph nodes are indeterminate. Jim metastatic disease is not excluded. 4. Postsurgical changes from prostatectomy and cystectomy with ileal conduit and right lower quadrant ileostomy. Mild right hydroureter without significant hydronephrosis. 5. Indeterminate 3 mm right middle lobe pulmonary nodule. Approved by: Raimundo Bowen M.D. on 04/02/2024 at 18:55 MDM Narrative Medical decision making narrative: 73-year-old history of bladder cancer, had urostomy and radiation is scheduled to start chemotherapy next week. Patient presents with concern for left upper abdominal hernia. Unable to palpate a small nodule which could be a small amount of fat trapped but is only mildly tender currently he describes as being much larger but sounds like he was possibly able to reduce hernia earlier. Patient was also appropriate vitals initially but heart rate increased found to be in AFib RVR has a known history is not anticoagulated not currently on any medication for rate control. He is otherwise asymptomatic. Labs show normal CBC, normal white count hemoglobin and platelets. INR is normal, sodium 136 potassium is 4.6 once 23 creatinine is 1.20, glucose is 123. Alk-phos is 144 but otherwise normal. EKG shows AFib RVR nonspecific change. CT abdomen pelvis UA is nitrate positive, trace protein 2+ leukocyte esterase. Patient signed out to me by Dr. Mendoza I have seen evaluated patient myself. He overall appears well and nontoxic. He is minimally tender in his left upper quadrant. CT does confirm upper abdominal fat ventral hernia with a wide neck. There is no evidence of incarceration at this time. He reports he does get nauseous and is currently out of his anti nausea medication but is not actively nauseous or vomiting. Abdomen is soft no distention. Urine is suspicious for UTI however he has no evidence of sepsis. We discussed holding off antibiotics until culture count came back possibly colonized. He is supposed to start chemotherapy in 2 days I recommended he call and ask where his culture prior to chemotherapy. Discharge Plan Departure Patient Disposition: Home Clinical Impression: Ventral hernia Instructions: DI for Ventral Hernia Activity Restrictions/Additional Instructions: *You have been diagnosed with ventral hernia *What to do: At this time it does appear that you have hernia. I do recommend getting an abdominal binder that Velcro still help he would the hernia in place. If it should come out I recommend that you lay down and tried to push it back in you are unable to push it back in when please return to the emergency department And also does appear that you might have a bladder and urinary tract infection. At this time please call emergency department in 2-3 days to see if you should need antibiotics. *Continue to take medications as directed Zofran 4 mg every 8 hours if needed for nausea or vomiting *Follow up with your primary care provider in 2-3 days or call [phone] *Return to ER if you should have increasing abdominal pain, inability to push hernia in, or any new, worsening or concerning symptoms Prescriptions: New ondansetron 4 mg tablet,disintegrating 4 mg PO Q8H PRN (Reason: nausea and vomiting) Qty: 10 0RF Referrals: Danay Castelan MD [Primary Care Provider] - Stand Alone Forms: Patient Portal/API/Survey
--- NOTE | 2024-04-02 17:05 | DI.CT.S_ITS ---
PROCEDURE: CT ABDOMEN PELVIS W CON INDICATIONS: LUQ lump, better now but painful, n/v before ?hernia TECHNIQUE: After the administration of intravenous contrast, axial sections acquired from the lung bases to the pubic symphysis. Coronal and sagittal reformats were performed. For radiation dose reduction, the following was used: automated exposure control, adjustment of mA and/or kV according to patient size. COMPARISON: [facility], CT, CT ABDOMEN HEPATIC/ADRENAL PROTOCOL, 06/03/2021, 14:11. FINDINGS: Image quality: Diagnostic. Lower Chest: 3 mm subpleural nodule in the right middle lobe (3/4). ABDOMEN: Liver: Nodular liver surface. Hyperenhancing lesions are seen in segment 4A and 7 () a few hypoattenuating lesions are seen in an segments 2 and 3 (such as on and ). The majority of these lesions are new or more prominent when compared to the CT from 06/02/2021. Gallbladder: Mild dependent sludge. No pericholecystic inflammatory changes. Biliary ducts: No biliary dilation. Pancreas: No ductal dilation. Spleen: Size is upper limits of normal. Stable low-density lesion in the spleen, which is likely benign. Adrenal Glands: 1.4 x 1.1 cm left adrenal nodule versus retroperitoneal lymph node (239), which is new when compared to the prior exam. Kidneys and Ureters: Postsurgical changes from cystectomy and ileal conduit. The right ureter is mildly diffusely dilated without significant hydronephrosis. Left ureter appears normal. No solid mass. No complex renal cystic lesion which requires follow up. Stomach and Bowel: Surgical anastomosis is seen in the right lower quadrant, which appears patent. Peritoneum: No abnormal intraperitoneal fluid. No free air. Ventral Wall: Upper abdominal fat containing midline ventral hernia is seen measuring approximately the 4.8 x 1.7 x 3.7 cm with neck measuring approximately 3.1 x 3.6 cm. Abdominal Nodes: Retroperitoneal lymph nodes are increased in size and number, for reference, a 1.1 cm left periaortic lymph node (261). Increased number of small lymph nodes are seen in the small bowel mesentery, nonspecific. Vessels: Aorta and inferior vena cava are normal in size. PELVIS: Pelvic Organs: Postsurgical changes are seen from prostatectomy and cystectomy with right abdominal urostomy. Small right hydrocele is partially imaged. Bladder: No bladder wall thickening, accounting for underdistention. Pelvic Nodes: No enlarged lymph nodes. Miscellaneous: No inguinal hernias are seen. Bones: No aggressive osseous abnormality. IMPRESSION: 1. Upper abdominal fat containing ventral hernia is seen with wide neck. 2. Cirrhotic morphology of the liver. Multiple indeterminate hyperenhancing and hypoenhancing lesions are seen. Recommend nonemergent liver protocol CT or MRI for further evaluation. 3. Multiple enlarged retroperitoneal lymph nodes are indeterminate. Jim metastatic disease is not excluded. 4. Postsurgical changes from prostatectomy and cystectomy with ileal conduit and right lower quadrant ileostomy. Mild right hydroureter without significant hydronephrosis. 5. Indeterminate 3 mm right middle lobe pulmonary nodule. Approved by: Raimundo Bowen M.D. on 04/02/2024 at 18:55
[2024-04-02] MEDS: dilTIAZem SR 60 MG PO (17:34)
[2024-04-02] MEDS: SODIUM CHLORIDE 0.9% 500 ML 1000 ML IV (17:34)
[2024-04-02 17:49] LABS: Appearance Urine UA SL CLOUDY; Bilirubin Urine UA NEGATIVE (NEGATIVE); Glucose Urine UA NEGATIVE (Negative); Ketones Urine UA NEGATIVE (NEGATIVE); Leukocyte Esterase Urine UA 2+ (NEGATIVE); Nitrite Urine UA POSITIVE (Negative); Occult Blood Urine UA TRACE-INTACT (Negative); Protein Urine UA TRACE (Negative); Specific Gravity Urine UA 1.015 (1.000-1.035); Urobilinogen Urine UA 0.2 E.U./dL (0.2)
[2024-04-02 17:50] LABS: Color Urine UA Dark Yellow
[2024-04-02 17:59] LABS: Bacteria Urine Many (>30); Mucus Urine 2+ (Negative); RBC Urine 1-5/HPF (0-5/HPF); Squamous Epithelial Cell Urine 0-1 /HPF (0-5/HPF); Urine Volume 10mL (spun); WBC Urine 5-10/HPF (0-5/HPF)
[2024-04-02 18:00] LABS: Culture Indicated Urine Specimen Cultured; Hyaline Casts Urine 1-5/LPF
[2024-04-02] MEDS: ONDANSETRON 4 MG ODT PREPACK 1 BOTTLE MISC (19:19)
== END 2024-04-02 19:25 | disposition home or self-care (01) ==
PROVIDERS: Emergency Medicine; Emergency Provider Emergency Medicine; PCP Family Medicine
DX: K43.9 Ventral hernia without obstruction or gangrene (principal); I48.20 Chronic atrial fibrillation, unspecified
CPT/HCPCS: 36415; 74177; 80053; 81001; 83690; 85025; 87077; 87086; 87186; 93005; 96360; 99284; Q9967

== ENCOUNTER 2025-04-05 12:38 | Emergency (ER) | payer MEDICARE, SELFPAY ==
[2019-06-02 08:00] VITALS: BMI 22.6
[2025-04-05] VITALS (17 sets, daily range): BP systolic 103–150; BP diastolic 67–89; PULSE 82–143; RESP 17–20; TEMP 36.6; O2SAT 84–98
--- NOTE | 2025-04-05 12:53 | DI.RAD.S_ITS ---
PROCEDURE: XR CHEST 1V INDICATIONS: Chest Pain TECHNIQUE: One view of the chest was acquired. COMPARISON: [facility], CR, XR CHEST 1V, 06/01/2019, 20:57. [facility], CR, XR CHEST 1V, 05/23/2019, 19:52. FINDINGS: Surgical changes and devices: None. Lungs and pleura: Lungs are clear except for what appears to be linear atelectasis at the lateral left lung base in the setting of relatively prominent reduced inspiratory volume. No pleural effusions or pneumothorax. Mediastinum: Mediastinal contours appear normal. Heart size is normal. Bones and chest wall: No suspicious bony lesions. Overlying soft tissues appear unremarkable. IMPRESSION: No pneumothorax or cardiomegaly. Reduced inspiratory volume. Presumed mild linear atelectasis left lower lobe. Dictated by: Cosme Ponce M.D. on 04/05/2025 at 13:12 Approved by: Cosme Ponce M.D. on 04/05/2025 at 13:13
[2025-04-05 13:09] LABS: Add Manual Diff / Slide Review NO; Hematocrit 42.8 % (41-53); Hemoglobin 14.8 g/dL (13.5-17.5); Lymphocytes Absolute Auto 600 /uL (1100-4500); Mean Corpuscular HGB Conc 34.7 % (30-36); Mean Corpuscular Hemoglobin 32.0 PG (26-34); Mean Corpuscular Volume 92.3 fL (80-100); Platelet Count 222 X10^3/uL (150-400)
[2025-04-05 13:17] LABS: INR 1.4 (0.9-1.3); Prothrombin Time 16.1 SECONDS (9.4-12.5)
[2025-04-05 13:19] LABS: PTT Partial Thromboplastin Tim 29 SECONDS (25.1-36.5)
[2025-04-05 13:23] LABS: Alanine Aminotransferase 24 IU/L (<50); Albumin 3.8 g/dL (3.5-5.0); Albumin Globulin Ratio 0.8 (1.0-2.8); Alkaline Phosphatase 369 U/L (38-126); Blood Urea Nitrogen 15 mg/dL (9-20); Calcium 9.1 mg/dL (8.4-10.2); Carbon Dioxide 26 mmol/L (22-32); Chloride 104 mmol/L (98-107); Creatine Kinase 31 U/L (55-170); Estimated Glomerular Filt Rate > 60 mL/min (>60); Globulin 4.5 g/dL (1.7-4.1); Glucose 117 mg/dL (70-99); HEMOLYSIS < 15 (0-50); Lipase 62 U/L (23-300); Magnesium 1.8 mg/dL (1.6-2.3); Potassium 4.0 mmol/L (3.4-5.1); Sodium 138 mmol/L (137-145); Total Protein 8.3 g/dL (6.3-8.2)
[2025-04-05 13:34] LABS: Troponin I < 0.012 ng/mL (0.01-0.034)
--- NOTE | 2025-04-05 13:38 | PC.NURSE ---
Pt declines cardiac monitoring and continuous VS monitoring d/t discomfort. Pt is agreeable to intermittent VS checks. MD aware.
--- NOTE | 2025-04-05 14:40 | ED_ITS ---
HPI - Nausea/Vomiting/Diarrhea <Irvin Cantu MD - Last Filed: 04/06/25 07:15> General Chief complaint: Nausea/Vomiting/Diarrhea Stated complaint: Has cancer, severely dehydrated/malnourished Time Seen by Provider: 04/05/25 13:50 Source: patient and family Mode of arrival: Wheelchair History of Present Illness HPI Narrative: 74 years old male with history of atrial fibrillation not on any blood thinner, urinary bladder cancer status post bladder removal with urostomy placement follow up at came in today complaining of nausea vomiting, abdominal pain, diarrhea, generalized weakness, slight shortness of breath since yesterday without fever, chest pain, Dizziness, loss of consciousness, decreased urine output from the urostomy. He described the diarrhea as liquid stool with some black stool but denied any blood in her stool. bedside rectal exam showed no stool in the rectum so I could not do stool occult blood test. Related Data Previous Rx's ?Medication ?Instructions ?Recorded ondansetron 4 mg disintegrating 4 mg PO Q8H PRN nausea and 04/02/24 tablet vomiting #10 tabs amoxicillin 875 mg-potassium 1 tab PO BID #14 tabs clavulanate 125 mg tablet promethazine 25 mg tablet 25 mg PO TID PRN nausea and 04/05/25 vomiting #30 tabs Allergies Allergy/AdvReac Type Severity Reaction Status Date / Time No Known Drug Allergies Allergy Verified 04/05/25 12:54 Review of Systems <Irvin Cantu MD - Last Filed: 04/06/25 07:15> Review of Systems Narrative: Positive fornausea vomiting, abdominal pain, diarrhea, generalized weakness, slight shortness of breath since yesterday negative for fever, chest pain, Dizziness, loss of consciousness, decreased urine output from the urostomy. Patient History <Irvin Cantu MD - Last Filed: 04/06/25 07:15> Medical History (Updated 04/05/25 @ 20:38 by Alea Bach MD) Hepatitis C Atrial fibrillation Surgical History History of hand surgery Family History Father Atrial fibrillation Chronic kidney disease Mother Parkinson's disease Sister Atrial fibrillation Sister Atrial fibrillation Cancer Social History household members: none Smoking Status: Smoker, status unknown alcohol intake: former Smoking Status: Smoker, status unknown tobacco type: vaping Exam <Irvin Cantu MD - Last Filed: 04/06/25 07:15> Narrative Exam Narrative: GENERAL: Appear weak. No acute distress. HEAD: Atraumatic. Normocephalic. NECK: Trachea midline. Non tender CARDIOVASCULAR: Regular rate and rhythm without murmurs, gallops, or rubs. RESPIRATORY: Clear to auscultation. Breath sounds equal bilaterally. No wheezes, rales, or rhonchi. GASTROINTESTINAL: Generalized mild tenderness on palpation abdomen. Mild distention. Ileostomy bag in place. EXTREMITIES: No edema or joint tenderness. BACK: Nontender without deformity or crepitance. No flank tenderness. NEURO: AOx3. SKIN: No rash or erythema of visible areas Initial Vital Signs Initial Vital Signs: Vital Signs Temperature 97.9 F 04/05/25 12:54 Pulse Rate 105 H 04/05/25 12:54 Respiratory Rate 17 04/05/25 12:54 Blood Pressure 150/89 H 04/05/25 12:54 Pulse Oximetry 97 04/05/25 12:54 Oxygen Delivery Method Room Air 04/05/25 12:54 <Alea Bach MD - Last Filed: 04/05/25 20:43> Initial Vital Signs Initial Vital Signs: Vital Signs Temperature 97.9 F 04/05/25 12:54 Pulse Rate 105 H 04/05/25 12:54 Respiratory Rate 17 04/05/25 12:54 Blood Pressure 150/89 H 04/05/25 12:54 Pulse Oximetry 97 04/05/25 12:54 Oxygen Delivery Method Room Air 04/05/25 12:54 Course <Irvin Cantu MD - Last Filed: 04/06/25 07:15> Orders Ordered: Discontinued Medications Amoxicillin/Clavulanate Potassium (Amoxicillin/Clav 875/125 Mg) 1 tab PO NOW ONE Stop: 04/05/25 20:36 Last Admin: 04/05/25 20:48 Dose: 1 tab Documented By: KB Droperidol (Droperidol 2.5 Mg/Ml Vial) 0.625 mg IV NOW ONE Stop: 04/05/25 16:46 Last Admin: 04/05/25 16:57 Dose: 0.625 mg Documented By: NABEEL Lactated Ringer's (Lactated Ringers) 1,000 mls @ 1,000 mls/hr IV BOLUS ONE Stop: 04/05/25 15:38 Last Infusion: 04/05/25 16:57 Dose: Infused Documented By: Admin: 04/05/25 14:46 Dose: 1,000 mls/hr Documented By: NABEEL Ondansetron HCl (Ondansetron 4 Mg/2 Ml Inj) 4 mg IV NOW ONE Stop: 04/05/25 14:40 Last Admin: 04/05/25 14:47 Dose: 4 mg Documented By: NABEEL Vital Signs Vital signs: Vital Signs - 8 hr 04/05/25 12:54 04/05/25 12:57 04/05/25 14:00 Temperature 97.9 F Pulse Rate 105 H 82 Respiratory Rate 17 20 Blood Pressure 150/89 H 150/89 H Pulse Oximetry 97 98 84 L Oxygen Delivery Method Room Air Room Air 04/05/25 14:01 04/05/25 14:01 04/05/25 14:29 Temperature Pulse Rate 133 H 133 H Respiratory Rate Blood Pressure 110/72 Pulse Oximetry 95 95 Oxygen Delivery Method 04/05/25 14:30 04/05/25 14:30 04/05/25 15:00 Temperature Pulse Rate 98 H Respiratory Rate Blood Pressure 103/72 111/72 Pulse Oximetry 95 Oxygen Delivery Method 04/05/25 15:00 04/05/25 15:38 04/05/25 15:39 Temperature Pulse Rate 130 H 126 H Respiratory Rate Blood Pressure 128/87 Pulse Oximetry 95 92 Oxygen Delivery Method 04/05/25 15:39 04/05/25 16:00 04/05/25 16:00 Temperature Pulse Rate 121 H 133 H Respiratory Rate 20 Blood Pressure 121/73 Pulse Oximetry 92 91 Oxygen Delivery Method Room Air 04/05/25 16:30 04/05/25 16:30 04/05/25 16:59 Temperature Pulse Rate 117 H 116 H Respiratory Rate 18 Blood Pressure 119/74 Pulse Oximetry 96 92 Oxygen Delivery Method Room Air 04/05/25 17:00 04/05/25 17:00 04/05/25 17:30 Temperature Pulse Rate 121 H Respiratory Rate Blood Pressure 120/75 114/73 Pulse Oximetry 92 Oxygen Delivery Method 04/05/25 17:30 04/05/25 18:00 04/05/25 18:00 Temperature Pulse Rate 133 H 123 H Respiratory Rate Blood Pressure 114/67 Pulse Oximetry 94 94 Oxygen Delivery Method 04/05/25 18:30 04/05/25 18:30 04/05/25 19:00 Temperature Pulse Rate 134 H Respiratory Rate Blood Pressure 120/78 119/67 Pulse Oximetry 95 Oxygen Delivery Method 04/05/25 19:00 Temperature Pulse Rate 143 H Respiratory Rate 20 Blood Pressure Pulse Oximetry 96 Oxygen Delivery Method Room Air <Alea Bach MD - Last Filed: 04/05/25 20:43> Orders Ordered: Discontinued Medications Amoxicillin/Clavulanate Potassium (Amoxicillin/Clav 875/125 Mg) 1 tab PO NOW ONE Stop: 04/05/25 20:36 Last Admin: 04/05/25 20:48 Dose: 1 tab Documented By: ADRIANNE Droperidol (Droperidol 2.5 Mg/Ml Vial) 0.625 mg IV NOW ONE Stop: 04/05/25 16:46 Last Admin: 04/05/25 16:57 Dose: 0.625 mg Documented By: NABEEL Lactated Ringer's (Lactated Ringers) 1,000 mls @ 1,000 mls/hr IV BOLUS ONE Stop: 04/05/25 15:38 Last Infusion: 04/05/25 16:57 Dose: Infused Documented By: Admin: 04/05/25 14:46 Dose: 1,000 mls/hr Documented By: NABEEL Ondansetron HCl (Ondansetron 4 Mg/2 Ml Inj) 4 mg IV NOW ONE Stop: 04/05/25 14:40 Last Admin: 04/05/25 14:47 Dose: 4 mg Documented By: NABEEL Vital Signs Vital signs: Vital Signs - 8 hr 04/05/25 12:54 04/05/25 12:57 04/05/25 14:00 Temperature 97.9 F Pulse Rate 105 H 82 Respiratory Rate 17 20 Blood Pressure 150/89 H 150/89 H Pulse Oximetry 97 98 84 L Oxygen Delivery Method Room Air Room Air 04/05/25 14:01 04/05/25 14:01 04/05/25 14:29 Temperature Pulse Rate 133 H 133 H Respiratory Rate Blood Pressure 110/72 Pulse Oximetry 95 95 Oxygen Delivery Method 04/05/25 14:30 04/05/25 14:30 04/05/25 15:00 Temperature Pulse Rate 98 H Respiratory Rate Blood Pressure 103/72 111/72 Pulse Oximetry 95 Oxygen Delivery Method 04/05/25 15:00 04/05/25 15:38 04/05/25 15:39 Temperature Pulse Rate 130 H 126 H Respiratory Rate Blood Pressure 128/87 Pulse Oximetry 95 92 Oxygen Delivery Method 04/05/25 15:39 04/05/25 16:00 04/05/25 16:00 Temperature Pulse Rate 121 H 133 H Respiratory Rate 20 Blood Pressure 121/73 Pulse Oximetry 92 91 Oxygen Delivery Method Room Air 04/05/25 16:30 04/05/25 16:30 04/05/25 16:59 Temperature Pulse Rate 117 H 116 H Respiratory Rate 18 Blood Pressure 119/74 Pulse Oximetry 96 92 Oxygen Delivery Method Room Air 04/05/25 17:00 04/05/25 17:00 04/05/25 17:30 Temperature Pulse Rate 121 H Respiratory Rate Blood Pressure 120/75 114/73 Pulse Oximetry 92 Oxygen Delivery Method 04/05/25 17:30 04/05/25 18:00 04/05/25 18:00 Temperature Pulse Rate 133 H 123 H Respiratory Rate Blood Pressure 114/67 Pulse Oximetry 94 94 Oxygen Delivery Method 04/05/25 18:30 04/05/25 18:30 04/05/25 19:00 Temperature Pulse Rate 134 H Respiratory Rate Blood Pressure 120/78 119/67 Pulse Oximetry 95 Oxygen Delivery Method 04/05/25 19:00 Temperature Pulse Rate 143 H Respiratory Rate 20 Blood Pressure Pulse Oximetry 96 Oxygen Delivery Method Room Air MDM - Nausea/Vomiting/Diarrhea <Irvin Cantu MD - Last Filed: 04/06/25 07:15> Lab Data 04/05/25 12:55 04/05/25 12:55 Labs: Lab Results 04/05/25 04/05/25 Range/Units 12:55 16:18 WBC 9.3 (4.5-11.0) X10^3/uL RBC 4.63 (4.5-5.9) X10^6/uL Hgb 14.8 (13.5-17.5) g/dL Hct 42.8 (41-53) % MCV 92.3 (80-100) fL MCH 32.0 (26-34) PG MCHC 34.7 (30-36) % RDW 14.0 (11.6-14.8) % Plt Count 222 (150-400) X10^3/uL Neut % (Auto) 84.1 H (50-75) % Lymph % (Auto) 6.6 L (25-40) % Irwin % (Auto) 8.2 (3-14) % Eos % (Auto) 0.5 L (2-4) % Baso % (Auto) 0.6 (0-2) % Neut # (Auto) 7800 H (6424-2795) /uL Lymph # (Auto) 600 L (7401-5381) /uL Irwin # (Auto) 800 (0-900) /uL Eos # (Auto) 100 (0-450) /uL Baso # (Auto) 100 (0-100) /uL PT 16.1 H (9.4-12.5) SECONDS INR 1.4 H (0.9-1.3) APTT 29 (25.1-36.5) SECONDS Sodium 138 (137-145) mmol/L Potassium 4.0 (3.4-5.1) mmol/L Chloride 104 (98-107) mmol/L Carbon Dioxide 26 (22-32) mmol/L BUN 15 (9-20) mg/dL Creatinine 0.83 (0.66-1.25) mg/dL Estimated GFR > 60 (>60) mL/min BUN/Creatinine Ratio 18.1 (6-22) Glucose 117 H (70-99) mg/dL Calcium 9.1 (8.4-10.2) mg/dL Magnesium 1.8 (1.6-2.3) mg/dL Total Bilirubin 1.8 H (0.2-1.3) mg/dL AST 51 (17-59) IU/L ALT 24 (<50) IU/L Alkaline Phosphatase 369 H (38-126) U/L Total Creatine Kinase 31 L (55-170) U/L Troponin I < 0.012 (0.01-0.034) ng/mL Total Protein 8.3 H (6.3-8.2) g/dL Albumin 3.8 (3.5-5.0) g/dL Globulin 4.5 H (1.7-4.1) g/dL Albumin/Globulin Ratio 0.8 L (1.0-2.8) Lipase 62 (23-300) U/L Urine Color Dark yellow Urine Appearance Turbid Urine pH >= 9.0 H (4.5-8.0) Ur Specific [place] 1.010 (1.000-1.035) Urine Protein 2+ H (Negative) Urine Glucose (UA) Negative (Negative) g/dL Urine Ketones 1+ H (NEGATIVE) Urine Occult Blood 2+ H (Negative) Urine Nitrate Positive H (Negative) Urine Bilirubin Negative (NEGATIVE) Urine Urobilinogen 1.0 (0.2) E.U./dL Ur Leukocyte Esterase 1+ H (NEGATIVE) Urine RBC 0-1/hpf (0-5/HPF) Urine WBC 5-10/hpf H (0-5/HPF) Ur Squamous Epith Cells 0-1 /hpf (0-5/HPF) Uric Acid Crystals Not Reportable Triple Phos Crystals Few Urine Bacteria Many (>30) H (None) Ur Culture Indicated? Specimen cultured Vol Urine Centrifuged 10ml (spun) MDM Narrative Medical decision making narrative: 74 years old male with history of atrial fibrillation not on any blood thinner, urinary bladder cancer status post bladder removal with urostomy placement follow up at came in today complaining of nausea vomiting, abdominal pain, diarrhea, generalized weakness, slight shortness of breath since yesterday without fever, chest pain, Dizziness, loss of consciousness, decreased urine output from the urostomy. He described the diarrhea as liquid stool with some black stool but denied any blood in her stool. bedside rectal exam showed no stool in the rectum so I could not do stool occult blood test. <Alea Bach MD - Last Filed: 04/05/25 20:43> Lab Data Labs: Lab Results 04/05/25 04/05/25 Range/Units 12:55 16:18 WBC 9.3 (4.5-11.0) X10^3/uL RBC 4.63 (4.5-5.9) X10^6/uL Hgb 14.8 (13.5-17.5) g/dL Hct 42.8 (41-53) % MCV 92.3 (80-100) fL MCH 32.0 (26-34) PG MCHC 34.7 (30-36) % RDW 14.0 (11.6-14.8) % Plt Count 222 (150-400) X10^3/uL Neut % (Auto) 84.1 H (50-75) % Lymph % (Auto) 6.6 L (25-40) % Irwin % (Auto) 8.2 (3-14) % Eos % (Auto) 0.5 L (2-4) % Baso % (Auto) 0.6 (0-2) % Neut # (Auto) 7800 H (2868-6359) /uL Lymph # (Auto) 600 L (0532-0492) /uL Irwin # (Auto) 800 (0-900) /uL Eos # (Auto) 100 (0-450) /uL Baso # (Auto) 100 (0-100) /uL PT 16.1 H (9.4-12.5) SECONDS INR 1.4 H (0.9-1.3) APTT 29 (25.1-36.5) SECONDS Sodium 138 (137-145) mmol/L Potassium 4.0 (3.4-5.1) mmol/L Chloride 104 (98-107) mmol/L Carbon Dioxide 26 (22-32) mmol/L BUN 15 (9-20) mg/dL Creatinine 0.83 (0.66-1.25) mg/dL Estimated GFR > 60 (>60) mL/min BUN/Creatinine Ratio 18.1 (6-22) Glucose 117 H (70-99) mg/dL Calcium 9.1 (8.4-10.2) mg/dL Magnesium 1.8 (1.6-2.3) mg/dL Total Bilirubin 1.8 H (0.2-1.3) mg/dL AST 51 (17-59) IU/L ALT 24 (<50) IU/L Alkaline Phosphatase 369 H (38-126) U/L Total Creatine Kinase 31 L (55-170) U/L Troponin I < 0.012 (0.01-0.034) ng/mL Total Protein 8.3 H (6.3-8.2) g/dL Albumin 3.8 (3.5-5.0) g/dL Globulin 4.5 H (1.7-4.1) g/dL Albumin/Globulin Ratio 0.8 L (1.0-2.8) Lipase 62 (23-300) U/L Urine Color Dark yellow Urine Appearance Turbid Urine pH >= 9.0 H (4.5-8.0) Ur Specific [place] 1.010 (1.000-1.035) Urine Protein 2+ H (Negative) Urine Glucose (UA) Negative (Negative) g/dL Urine Ketones 1+ H (NEGATIVE) Urine Occult Blood 2+ H (Negative) Urine Nitrate Positive H (Negative) Urine Bilirubin Negative (NEGATIVE) Urine Urobilinogen 1.0 (0.2) E.U./dL Ur Leukocyte Esterase 1+ H (NEGATIVE) Urine RBC 0-1/hpf (0-5/HPF) Urine WBC 5-10/hpf H (0-5/HPF) Ur Squamous Epith Cells 0-1 /hpf (0-5/HPF) Uric Acid Crystals Not Reportable Triple Phos Crystals Few Urine Bacteria Many (>30) H (None) Ur Culture Indicated? Specimen cultured Vol Urine Centrifuged 10ml (spun) Imaging Data CT scan - abdomen/pelvis: Radiologist's Impression: PROCEDURE: CT ABDOMEN PELVIS W CON INDICATIONS: nausea vomiting diarrhea, abdominal pain, generalized weakn TECHNIQUE: After the administration of intravenous contrast, axial sections acquired from the lung bases to the pubic symphysis. Coronal and sagittal reformats were performed. For radiation dose reduction, the following was used: automated exposure control, adjustment of mA and/or kV according to patient size. COMPARISON: [facility], CT, CT ABDOMEN PELVIS W CON, 04/02/2024, 17:12. FINDINGS: Image quality: Diagnostic. Lower Chest: A stable 3 mm right middle lobe pulmonary nodule is again seen. ABDOMEN: Liver: A cirrhotic liver is seen. Irregular liver masses can be seen with areas of hyperenhancement and hypoenhancement. One is seen within the central liver measuring 5.5 x 5.1 cm (segment 4A). This lesion is clearly worse than on the prior examination. A 2nd is seen within the right liver superiorly measuring 5.4 x 5.3 cm (segment 7). Lesion was not definitely seen on the prior. Gallbladder: No radiopaque gallstones or wall thickening. Biliary ducts: No biliary dilation. Pancreas: No ductal dilation. Spleen: Size is within normal limits. Adrenal Glands: No adrenal nodules. Kidneys and Ureters: No hydronephrosis. No solid mass. No complex renal cystic lesion which requires follow up. Stomach and Bowel: No dilated loops of small bowel are seen. Generalized thickening can be seen of the small bowel loops which is commonly observed in patients with ascites. No significant colonic abnormality is seen. Peritoneum: There is at least moderate ascites. No free air. Ventral Wall: No significant ventral hernia. Abdominal Nodes: No retroperitoneal or mesenteric adenopathy by size criteria. Vessels: Aorta and inferior vena cava are normal in size. PELVIS: Pelvic Organs: Unremarkable. Bladder: There is cystectomy with right lower quadrant ileal conduit. Pelvic Nodes: No enlarged lymph nodes. Miscellaneous: No inguinal hernias are seen. Bones: Within the posterior left aspect of the T12 vertebral body, there is an expansile lytic metastasis, measuring at least 2.8 cm. There is an expansile, aggressive appearing metastasis seen within the medial right iliac bone measuring 5.3 x 3.7 cm in greatest axial dimension. There is also a left metastasis seen within the right sacrum, measuring at least 4 x 4.5 cm. IMPRESSION: Cirrhotic liver, with clear interval worsening of liver masses compared to 04/02/2024. There is at least moderate ascites which is new compared to the prior CT. Bony metastatic disease is seen which is clearly progressed compared to the prior. Prior cystectomy with a right lower quadrant ileal conduit. Additional findings: Stable 3 mm right middle lobe pulmonary nodule Dictated by: oJe Linares M.D. on 04/05/2025 at 15:52 MDM Narrative Medical decision making narrative: 74 years old male with history of atrial fibrillation not on any blood thinner, urinary bladder cancer status post bladder removal with urostomy placement follow up at came in today complaining of nausea vomiting, abdominal pain, diarrhea, generalized weakness, slight shortness of breath since yesterday without fever, chest pain, Dizziness, loss of consciousness, decreased urine output from the urostomy. He described the diarrhea as liquid stool with some black stool but denied any blood in her stool. bedside rectal exam showed no stool in the rectum so I could not do stool occult blood test. Dr Bach, care is assumed, chart is reviewed, patient is independently evaluated CBC is unremarkable, no sign of significant anemia Chemistries show normal renal function. Bilirubin is slightly elevated at 1.8, alk-phos is at 369 Lipase is normal Urine was obtained through his urostomy bag. Similar to finding from almost a year ago, showed E coli and Proteus. Chest x-ray:Lungs and pleura: Lungs are clear except for what appears to be linear atelectasis at the lateral left lung base in the setting of relatively prominent reduced inspiratory volume. No pleural effusions or pneumothorax. Abdominal pelvic CT shows worsening cancer findings including lytic lesions the T12 vertebral body, medial right iliac bone, left metastasis seen within the right sacrum. Moderate ascites Findings reviewed with the patient, he is aware of all the metastatic lesions has undergone radiation for some of those is on his ?last chance chemotherapy?. Primary complaint was vomiting and diarrhea both of which slowed significantly. In absence seemed to be most effective with helping with the vomiting. There was no signs of bowel obstruction or significant infection at this time. He does not have significant tenderness to suggest spontaneous bacterial peritonitis. He would definitely prefer to go home. We will give him a prescription for Phenergan to use in addition to the Zofran that he has a available at home. He has follow up with his oncology team at the [facility] soon. There is no sign of acute surgical abdomen although he does have moderate nontender ascites. Urine looks similar to what it was a year ago showing E coli and Proteus. Oral options for treating both include Cipro, levofloxacillin, Augmentin. We will opt to treat with Augmentin initial dose given in the emergency department and prescription is written. There were no signs of sepsis. He will be discharged Discharge Plan Departure Patient Disposition: Home Clinical Impression: Malignant neoplasm metastatic from bladder, Nausea vomiting and diarrhea Urinary tract infection Qualifiers: Urinary tract infection type: site unspecified Hematuria presence: without hematuria Qualified Code(s): N39.0 - Urinary tract infection, site not specified Abdominal ascites Qualifiers: Ascites type: malignant Qualified Code(s): R18.0 - Malignant ascites Instructions: DI for Vomiting -- Adult Activity Restrictions/Additional Instructions: Thank you for coming in today I am sorry that you are having so many symptoms from your bladder cancer. It sounds like you are receiving excellent care from the [facility] With urine that we collected from your urostomy bag it does look like there may be an infection. The urinalysis looks very similar to 1 that we did in March last year and I am going to treat you based on findings from that sample. I gave you an initial dose of Augmentin and I am going to suggest 7 days of this to continue To help with your nausea, you can continue to use the ondansetron that you have at home, I am also going to give you a prescription for Phenergan. You do need to follow up with your [facility] physicians and if you are continuing to have severe vomiting or diarrhea please do return to the emergency department and we can definitely help with rehydration. Prescriptions: New amoxicillin-pot clavulanate 875-125 mg tablet 1 tab PO BID Qty: 14 0RF promethazine 25 mg tablet 25 mg PO TID PRN (Reason: nausea and vomiting) Qty: 30 0RF No Action ondansetron 4 mg tablet,disintegrating 4 mg PO Q8H PRN (Reason: nausea and vomiting) Qty: 10 0RF Referrals: Danay Castelan MD [Primary Care Provider, Family Practice] Stand Alone Forms: Patient Portal/API
[2025-04-05] MEDS: LACTATED RINGERS 1,000 ML 1000 ML IV (14:46)
[2025-04-05] MEDS: ONDANSETRON 4 MG/2 ML INJ IV (14:47)
[2025-04-05 16:26] LABS: Appearance Urine UA TURBID; Bilirubin Urine UA NEGATIVE (NEGATIVE); Glucose Urine UA NEGATIVE (Negative); Ketones Urine UA 1+ (NEGATIVE); Leukocyte Esterase Urine UA 1+ (NEGATIVE); Nitrite Urine UA POSITIVE (Negative); Occult Blood Urine UA 2+ (Negative); Protein Urine UA 2+ (Negative); Specific Gravity Urine UA 1.010 (1.000-1.035); Urobilinogen Urine UA 1.0 E.U./dL (0.2); pH Urine UA >= 9.0 (4.5-8.0)
[2025-04-05 16:28] LABS: Color Urine UA Dark Yellow
[2025-04-05 16:41] LABS: Culture Indicated Urine Specimen Cultured
[2025-04-05] MEDS: droPERidol 2.5 MG/ML VIAL 0.625 MG IV (16:57)
[2025-04-05] MEDS: AMOXICILLIN/CLAV 875/125 MG 1 TAB PO (20:48)
== END 2025-04-05 20:53 | disposition home or self-care (01) ==
PROVIDERS: Emergency Medicine; Emergency Provider Emergency Medicine; PCP Family Medicine
DX: N39.0 Urinary tract infection, site not specified (principal); R18.0 Malignant ascites; R11.2 Nausea with vomiting, unspecified; C67.9 Malignant neoplasm of bladder, unspecified; R19.7 Diarrhea, unspecified; R10.9 Unspecified abdominal pain; R53.1 Weakness
CPT/HCPCS: 36415; 71045; 74177; 80053; 81001; 82550; 83690; 83735; 84484; 85025; 85610; 85730; 87077; 87086; 87186; 96361; 96374; 96375; 99284; J1790; J2405; J7120; Q9967